=== PATIENT | female | born 1960 | race American Indian/Alaskan Native ===

== ENCOUNTER 2020-09-23 01:40 | Inpatient (IN) | payer MEDICARE ==
--- NOTE | 2020-09-23 03:13 | XRay Report ---
CHEST 1 VIEW 09/23/2020 2:48 AM INDICATION / CLINICAL INFORMATION: Chest Pain. COMPARISON: None available. FINDINGS: SUPPORT DEVICES: AICD is noted HEART / MEDIASTINUM: There is enlargement of the cardiac silhouette. LUNGS / PLEURA: There is mild increase in interstitial markings bilaterally characteristic of mild ed jessica. No pneumothorax. ADDITIONAL FINDINGS: No significant additional findings. IMPRESSION: 1. There is enlargement of the cardiac silhouette. There is mild edema. Signer Name: Niko Cruz MD Signed: 09/23/2020 3:08 AM Workstation Name: [id number]
--- NOTE | 2020-09-23 03:18 | Emergency Department Report ---
ED Chest Pain HPI - General Chief Complaint: Chest Pain Stated Complaint: CHEST PAIN Time Seen by Provider: 09/23/20 02:55 Source: patient, EMS Mode of arrival: Wheelchair Limitations: No Limitations - History of Present Illness Initial Comments: This is a 60-year-old -[place] female who presents to the emergency department with complaint of sharp midsternal to left-sided chest pain that has been going on since earlier today (Monday). The patient has been having a 2- week history of progressively worsening shortness of breath. She also admits to some swelling to the bilateral lower legs and feet. The patient lives in [place] and saw her truck body repairer yesterday prior to coming up to [place] for a visit. The patient has a past medical history of COPD on 2 L oxygen via nasal cannula, previous CVA with some mild residual right-sided weakness, coronary artery disease with cardiac stents, CHF and the patient has an AICD/pacemaker in place. Patient also says that she has an internal cardiac monitor technician. About 2 weeks ago the patient was told that she had some abnormal rate or rhythm from the internal monitor. This led to her having a stress test which appeared abnormal. 1 week ago the patient had a heart cath in which she was told that she needed a cardiac stent placed but says that she did not get a stent placed at that time. The patient also says that she has a leaky heart valve that needs to be replaced sometime in the near future. The patient has taken her home medications but otherwise did not take anything else in attempt to treat her symptoms. Symptoms worsen with exertion. No known alleviating factors. She denies any tobacco or illicit drug use. - Related Data Allergies Allergy/AdvReac Type Severity Reaction Status Date / Time heparin Allergy Unknown Verified 09/23/20 02:36 latex Allergy Unknown Verified 09/23/20 02:36 Penicillins Allergy Unknown Verified 09/23/20 02:36 Heart Score - HEART Score History: Moderately suspicious EKG: Non-specific Age: 45-65 Risk factors: > 3 risk factors or hx of atherosclerotic disease Troponin: < normal limit HEART Score: 5 - Critical Actions Critical Actions: 4-6 pts:12-16.6% risk of adverse cardiac event. Should be admitted ED Review of Systems ROS: Stated complaint: CHEST PAIN Other details as noted in HPI Comment: All other systems reviewed and negative Constitutional: denies: chills, fever Eyes: denies: eye pain, vision change ENT: denies: ear pain, throat pain Respiratory: shortness of breath, SOB with exertion. denies: cough Cardiovascular: chest pain, edema Gastrointestinal: denies: abdominal pain, vomiting Genitourinary: denies: dysuria, discharge Musculoskeletal: denies: back pain, arthralgia Skin: denies: rash, lesions Neurological: denies: headache, weakness ED Past Medical Hx - Past Medical History Previous Medical History?: Yes Hx CVA: Yes (right weaker) Hx Heart Attack/AMI: Yes Hx COPD: Yes Additional medical history: CHF - Surgical History Hx Coronary Stent: Yes Hx Pacemaker: Yes Hx Internal Defibrillator: Yes - Social History Smoking Status: Never Smoker Substance Use Type: None ED Physical Exam - General Limitations: No Limitations - Other Other exam information: GENERAL: The patient is well-developed well-nourished. HENT: Normocephalic. Atraumatic. Patient has moist mucous membranes. EYES: Extraocular motions are intact. NECK: Supple. Trachea is midline. CHEST/LUNGS: Coarse breath sounds. No tachypnea or accessory muscle use. There is no respiratory distress noted. Unable to reproduce chest pain to palpation of the chest wall. HEART/CARDIOVASCULAR: Regular. There is no tachycardia. There is no murmur. ABDOMEN: Abdomen is soft, nontender. Patient has normal bowel sounds. There is no abdominal distention. SKIN: Skin is warm and dry. 1+ pitting edema to the bilateral lower extrem ities. NEURO: The patient is awake, alert, and oriented. The patient is cooperative. The patient has no focal neurologic deficits. Normal speech. MUSCULOSKELETAL: There is no tenderness or deformity. There is no limitation range of motion. ED Course Vital Signs 09/23/20 09/23/20 09/23/20 02:26 02:29 03:21 Temperature 97.2 F L 97.2 F L Pulse Rate 78 77 Respiratory 18 22 Rate Blood Pressure 124/92 Blood Pressure [Right] O2 Sat by Pulse 100 100 Oximetry 09/23/20 09/23/20 09/23/20 04:29 04:30 04:31 Temperature Pulse Rate 75 76 76 Respiratory 20 20 19 Rate Blood Pressure 137/99 137/99 Blood Pressure 137/99 [Right] O2 Sat by Pulse 99 99 100 Oximetry 09/23/20 09/23/20 04:51 05:00 Temperature Pulse Rate 76 Respiratory 18 21 Rate Blood Pressure 126/96 Blood Pressure [Right] O2 Sat by Pulse 97 Oximetry GAVIN score - Gavin Score Age > 65: (0) No Aspirin use within the Past 7 Days: (1) Yes 3 or more CAD Risk Factors: (1) Yes 2 or more Angina events in past 24 hrs: (1) Yes Known CAD with more than 50% Stenosis: (1) Yes Elevated Cardiac Markers: (0) No ST Deviation Greater than 0.5mm: (0) No GAVIN Score: 4 ED Medical Decision Making - Lab Data Result diagrams: 09/23/20 03:09 09/23/20 03:09 Lab Results 09/23/20 09/23/20 09/23/20 Range/Units 03:09 03:09 03:12 WBC 4.4 L (4.5-11.0) K/mm3 RBC 2.93 L (3.65-5.03) M/mm3 Hgb 9.6 L (10.1-14.3) gm/dl Hct 29.8 L (30.3-42.9) % MCV 102 H (79-97) fl MCH 33 H (28-32) pg MCHC 32 (30-34) % RDW 16.7 H (13.2-15.2) % Plt Count 135 L (140-440) K/mm3 Lymph % (Auto) 24.5 (13.4-35.0) % [place] % (Auto) 10.2 H (0.0-7.3) % Eos % (Auto) 1.6 (0.0-4.3) % Baso % (Auto) 0.9 (0.0-1.8) % Lymph # (Auto) 1.1 L (1.2-5.4) K/mm3 [place] # (Auto) 0.4 (0.0-0.8) K/mm3 Eos # (Auto) 0.1 (0.0-0.4) K/mm3 Baso # (Auto) 0.0 (0.0-0.1) K/mm3 Seg Neutrophils % 62.8 (40.0-70.0) % Seg Neutrophils # 2.8 (1.8-7.7) K/mm3 D-Dimer 580.22 H (0-234) ng/mlDDU Sodium 147 H (137-145) mmol/L Potassium 3.7 (3.6-5.0) mmol/L Chloride 106.8 (98-107) mmol/L Carbon Dioxide 26 (22-30) mmol/L Anion Gap 18 mmol/L BUN 18 H (7-17) mg/dL Creatinine 1.3 H (0.6-1.2) mg/dL Estimated GFR 51 ml/min BUN/Creatinine Ratio 14 % Glucose 90 (65-100) mg/dL Calcium 9.1 (8.4-10.2) mg/dL Troponin T < 0.010 (0.00-0.029) ng/mL NT-Pro-B Natriuret Pep 7440 H (0-900) pg/mL - EKG Data -: EKG Interpreted by Me EKG shows normal: sinus rhythm, axis, intervals (Prolonged QTC), QRS complexes (Left bundle branch block), ST-T waves Rate: normal - EKG Data When compared to previous EKG there are: previous EKG unavailable Interpretation: other (Sinus rhythm, rate of 79 bpm, prolonged QTC, left axis deviation, left bundle branch block.) - Radiology Data Radiology results: image reviewed interpreted by me: Chest x-ray shows cardiomegaly and some pulmonary vascular congestion with some mild interstitial edema. No obvious pneumonia. No pneumothorax. - Medical Decision Making This patient presents to the emergency department with complaint of some midsternal to left-sided chest pain that started earlier in the afternoon, as well as some worsening of her shortness of breath. EKG shows a left bundle branch block but there is no morphology consistent with ST elevation myocardial infarction. Chest x-ray shows some interstitial edema and pulmonary vascular congestion consistent with CHF. Patient's labs shows an elevated proBNP of about 7500, and elevated and equivocal D-dimer level, and some anemia that does not require a transfusion. She was given some IV analgesia and an extra dose of Lasix to help with diuresis. First troponin negative. Patient will be admitted to the hospital for further evaluation and treatment and was accepted for admission by the hospitalist, Dr. Mejia. Critical Care Time: No Critical care attestation.: If time is entered above; I have spent that time in minutes in the direct care of this critically ill patient, excluding procedure time. ED Disposition Clinical Impression: Angina at rest, Acute chest pain, History of coronary artery disease CHF exacerbation Qualifiers: Heart failure type: unspecified Qualified Code(s): I50.9 - Heart failure, unspecified Disposition: DC-09 OP ADMIT IP TO THIS HOSP Is pt being admited?: Yes Condition: Serious Time of Disposition: 04:46
[2020-09-23 04:17] LABS: Basophils % (Auto) 0.9 % (0.0-1.8); Eosinophils # (Auto) 0.1 K/mm3 (0.0-0.4); Eosinophils % (Auto) 1.6 % (0.0-4.3); Hematocrit 29.8 % (30.3-42.9); Hemoglobin 9.6 gm/dl (10.1-14.3); Lymphocytes # (Auto) 1.1 K/mm3 (1.2-5.4); Lymphocytes % (Auto) 24.5 % (13.4-35.0); Mean Corpuscular HGB Conc 32 % (30-34); Mean Corpuscular Volume 102 fl (79-97); Monocytes # (Auto) 0.4 K/mm3 (0.0-0.8); Monocytes % (Auto) 10.2 % (0.0-7.3); Platelet Count 135 K/mm3 (140-440); Red Blood Count 2.93 M/mm3 (3.65-5.03); Red Cell Distribution Width 16.7 % (13.2-15.2)
[2020-09-23 04:31] LABS: BUN/Creatinine Ratio 14; Blood Urea Nitrogen 18 mg/dL (7-17); Calcium 9.1 mg/dL (8.4-10.2); Hemolysis Index 3
[2020-09-23] MEDS ORDERED: FUROSEMIDE 20 MG/2 ML INJ IV ONE (04:37)
[2020-09-23] MEDS ORDERED: MORPHINE 4 MG/1 ML INJ IV ONE (04:38)
[2020-09-23] MEDS ORDERED: NITROGLYCERIN 0.4 MG TAB SUBL SL PRN (05:00)
[2020-09-23] MEDS ORDERED: ACETAMINOPHEN 325 MG TAB PO PRN (05:00)
[2020-09-23] MEDS ORDERED: MORPHINE 2 MG/1 ML INJ IV PRN (05:00)
--- NOTE | 2020-09-23 05:11 | History and Physical Report ---
History of Present Illness Date of examination: 09/23/20 Chief complaint: Chest pain Shortness of breath History of present illness: 60-year-old -[place] female with history of COPD on 2 L of oxygen and history of CVA, coronary artery disease CHF cardiac a stent who presents to the emergency department with complaint of sharp mid sternal to left-sided chest pain that has been going on since Monday. The patient has been having a 2-week history of progressively worsening shortness of breath and some swelling to the bilateral lower legs and feet. The patient lives in [place] and saw her licensed appraiser yesterday prior to coming up to [place] for a visit. the patient has an AICD/pacemaker in place. Patient also says that she has an internal property assessment monitor. About 2 weeks ago the patient was told that she had some abnormal rate or rhythm from the internal monitor. This led to her having a stress test which appeared abnormal. 1 week ago the patient had a heart cath in which she was told that she needed a cardiac stent placed but says that she did not get a stent placed at that time. The patient also says that she has a leaky heart valve that needs to be replaced sometime in the near future. The patient has taken her home medications but otherwise did not take anything else in attempt to treat her symptoms. Symptoms worsen with exertion. Past History Past Medical History: CAD, COPD, heart failure, stroke Medications and Allergies Allergies Allergy/AdvReac Type Severity Reaction Status Date / Time heparin Allergy Unknown Verified 09/23/20 02:36 latex Allergy Unknown Verified 09/23/20 02:36 Penicillins Allergy Unknown Verified 09/23/20 02:36 Active Meds: Active Medications Acetaminophen (Acetaminophen 325 Mg Tab) 650 mg PO Q6H PRN PRN Reason: Pain, Mild (1-3) Aspirin (Aspirin 81 Mg Tab Chew) 324 mg PO ONCE STA Stop: 09/23/20 05:01 Atorvastatin Calcium (Atorvastatin 40 Mg Tab) 40 mg PO QHS [facility] Furosemide (Furosemide 40 Mg/4 Ml Inj) 40 mg IV BID@0600,1800 [facility] Heparin Sodium (Porcine) (Heparin 5,000 Unit/1 Ml Vial) 5,000 unit SUB-Q Q8HR [facility] Lisinopril (Lisinopril 5 Mg Tab) 5 mg PO QDAY [facility] Morphine Sulfate (Morphine 4 Mg/1 Ml Inj) 2 mg IV Q5MIN PRN PRN Reason: Chest Pain Nitroglycerin (Nitroglycerin 0.4 Mg Tab Subl) 0.4 mg SL Q5M PRN PRN Reason: Chest Pain Pantoprazole Sodium (Pantoprazole 40 Mg Tab) 40 mg PO QDAY [facility] Sodium Chloride (Sodium Chloride 0.9% 10 Ml Flush Syringe) 10 ml IV PRN PRN PRN Reason: LINE FLUSH Review of Systems Cardiovascular: chest pain, orthopnea, shortness of breath, dyspnea on exertion Respiratory: shortness of breath, dyspnea on exertion Exam - Constitutional Vitals: Temp Pulse Resp BP Pulse Ox 97.2 F L 76 18 137/99 99 09/23/20 02:29 09/23/20 04:30 09/23/20 04:51 09/23/20 04:30 09/23/20 04:30 General appearance: Present: mild distress - EENT Eyes: Present: PERRL ENT: hearing intact, clear oral mucosa - Neck Neck: Present: supple, normal ROM - Respiratory Respiratory effort: normal Respiratory: bilateral: rales - Cardiovascular Heart Sounds: Present: S1 & S2. Absent: rub, click - Extremities Extremities: pulses symmetrical, No edema Peripheral Pulses: within normal limits - Abdominal General gastrointestinal: Present: soft, non-tender, non-distended, normal bowel sounds Female genitourinary: Present: normal - Integumentary Integumentary: Present: clear, warm, dry - Musculoskeletal Musculoskeletal: gait normal, strength equal bilaterally - Psychiatric Psychiatric: appropriate mood/affect, intact judgment & insight - Neurologic Neurologic: CNII-XII intact, moves all extremities HEART Score - HEART Score EKG: Non-specific Age: 45-65 Risk factors: > 3 risk factors or hx of atherosclerotic disease Troponin: Troponin T < 0.010 ng/mL (0.00-0.029) 09/23/20 03:09 Troponin: < normal limit - Critical Actions Critical Actions: 4-6 pts:12-16.6% risk of adverse cardiac event. Should be admitted Results - Labs CBC & Chem 7: 09/23/20 03:09 09/23/20 03:09 Labs: Laboratory Last Values WBC 4.4 K/mm3 (4.5-11.0) L 09/23/20 03:09 RBC 2.93 M/mm3 (3.65-5.03) L 09/23/20 03:09 Hgb 9.6 gm/dl (10.1-14.3) L 09/23/20 03:09 Hct 29.8 % (30.3-42.9) L 09/23/20 03:09 MCV 102 fl (79-97) H 09/23/20 03:09 MCH 33 pg (28-32) H 09/23/20 03:09 MCHC 32 % (30-34) 09/23/20 03:09 RDW 16.7 % (13.2-15.2) H 09/23/20 03:09 Plt Count 135 K/mm3 (140-440) L 09/23/20 03:09 Lymph % (Auto) 24.5 % (13.4-35.0) 09/23/20 03:09 [place] % (Auto) 10.2 % (0.0-7.3) H 09/23/20 03:09 Eos % (Auto) 1.6 % (0.0-4.3) 09/23/20 03:09 Baso % (Auto) 0.9 % (0.0-1.8) 09/23/20 03:09 Lymph # (Auto) 1.1 K/mm3 (1.2-5.4) L 09/23/20 03:09 [place] # (Auto) 0.4 K/mm3 (0.0-0.8) 09/23/20 03:09 Eos # (Auto) 0.1 K/mm3 (0.0-0.4) 09/23/20 03:09 Baso # (Auto) 0.0 K/mm3 (0.0-0.1) 09/23/20 03:09 Seg Neutrophils % 62.8 % (40.0-70.0) 09/23/20 03:09 Seg Neutrophils # 2.8 K/mm3 (1.8-7.7) 09/23/20 03:09 D-Dimer 580.22 ng/mlDDU (0-234) H 09/23/20 03:12 Sodium 147 mmol/L (137-145) H 09/23/20 03:09 Potassium 3.7 mmol/L (3.6-5.0) 09/23/20 03:09 Chloride 106.8 mmol/L (98-107) 09/23/20 03:09 Carbon Dioxide 26 mmol/L (22-30) 09/23/20 03:09 Anion Gap 18 mmol/L 09/23/20 03:09 BUN 18 mg/dL (7-17) H 09/23/20 03:09 Creatinine 1.3 mg/dL (0.6-1.2) H 09/23/20 03:09 Estimated GFR 51 ml/min 09/23/20 03:09 BUN/Creatinine Ratio 14 % 09/23/20 03:09 Glucose 90 mg/dL (65-100) 09/23/20 03:09 Calcium 9.1 mg/dL (8.4-10.2) 09/23/20 03:09 Troponin T < 0.010 ng/mL (0.00-0.029) 09/23/20 03:09 NT-Pro-B Natriuret Pep 7440 pg/mL (0-900) H 09/23/20 03:09 - Imaging and Cardiology Chest x-ray: image reviewed Assessment and Plan - Patient Problems (1) Acute chest pain Current Visit: Yes Status: Acute Plan to address problem: Admit the patient to the cardiac telemetry. Aspirin 325 mg p.o. daily. Lipitor 40 mg p.o. daily. Due to the serial cardiac enzyme. We also do echocardiogram. Will consult cardiology to see the patient. We'll check CBC BMP and lipid panel. Heparin 5000 units subcu every 8 hours for DVT prophylaxis and Protonix 40 mg daily for GI prophylaxis (2) CHF exacerbation Current Visit: Yes Status: Acute Plan to address problem: Put the patient on CHF pathway. Oxygen via nasal cannula 3 L/min. Fluid restriction. Lasix 40 mg IV every 12 hours. Echocardiogram. Will consult cardiology to see the patient. We also monitor intake and output . Recheck CBC BMP in the morning. (3) History of coronary artery disease Current Visit: Yes Status: Acute Plan to address problem: Admit the patient to the cardiac telemetry. Aspirin 325 mg p.o. daily. Lipitor 40 mg p.o. daily. Due to the serial cardiac enzyme. We also do echocardiogram. Will consult cardiology to see the patient. We'll check CBC BMP and lipid panel. Heparin 5000 units subcu every 8 hours for DVT prophylaxis and Protonix 40 mg daily for GI prophylaxis
[2020-09-23] MEDS ORDERED: ASPIRIN 81 MG TAB CHEW PO ONE (05:30)
[2020-09-23] MEDS ORDERED: HEPARIN 5,000 UNIT/1 ML VIAL SUB-Q SCH (06:00)
[2020-09-23] MEDS: FUROSEMIDE 40 MG/4 ML INJ IV SCH ×2 (06:46→18:09)
[2020-09-23 09:15] LABS: Eosinophils # (Auto) 0.1 K/mm3 (0.0-0.4); Eosinophils % (Auto) 3.1 % (0.0-4.3); Hematocrit 29.9 % (30.3-42.9); Hemoglobin 9.6 gm/dl (10.1-14.3); Lymphocytes # (Auto) 1.1 K/mm3 (1.2-5.4); Lymphocytes % (Auto) 27.2 % (13.4-35.0); Mean Corpuscular HGB Conc 32 % (30-34); Mean Corpuscular Volume 101 fl (79-97); Monocytes # (Auto) 0.4 K/mm3 (0.0-0.8); Monocytes % (Auto) 9.7 % (0.0-7.3); Platelet Count 127 K/mm3 (140-440); Red Blood Count 2.95 M/mm3 (3.65-5.03); Red Cell Distribution Width 17.1 % (13.2-15.2)
[2020-09-23 09:34] LABS: Calcium 9.1 mg/dL (8.4-10.2); Chol/HDL Ratio 2.33 %
--- NOTE | 2020-09-23 11:02 | Consultation ---
History of Present Illness Consult date: 09/23/20 Requesting physician: DAVID CHAPA Consult reason: chest pain, congestive heart failure History of present illness: The pt is a 60-year-old female who is visiting from [place], [place], with a past medical history of reported CAD s/p AMI with PCI in 2008, HFrEF, CMP (EF ~15%), AICD in situ, CVA with some mild residual right-sided weakness, COPD, chronic respiratory failure requiring home O2, gastric bypass. She presented with c/o progressively worsening SOB and BLE swelling for 2 weeks prior to arrival. The patient lives in [place] and reportedly saw her oil transport driver yesterday prior to coming to [place] for a visit. Pt reports that she underwent stress testing one week ago in [place] which was abnormal. She reportedly subsequently underwent LHC and was told that she needs "open heart surgery" and an external "pump" (? LVAD). She reports that she declined aggressive management. LHC done at [facility] in 2007 showed normal coronaries. tte done at [facility] in 2007 showed EF 45%, mild LVH, LA mildly dilated, mild to mo d TR. Past History Past Medical History: CAD, COPD, heart failure, stroke, other (as per HPI) Medications and Allergies Allergies Allergy/AdvReac Type Severity Reaction Status Date / Time heparin Allergy Unknown Verified 09/23/20 02:36 latex Allergy Unknown Verified 09/23/20 02:36 Penicillins Allergy Unknown Verified 09/23/20 02:36 Active Meds: Active Medications Acetaminophen (Acetaminophen 325 Mg Tab) 650 mg PO Q6H PRN PRN Reason: Pain, Mild (1-3) Atorvastatin Calcium (Atorvastatin 40 Mg Tab) 40 mg PO QHS [facility] Furosemide (Furosemide 40 Mg/4 Ml Inj) 40 mg IV BID@0600,1800 [facility] Last Admin: 09/23/20 06:46 Dose: Not Given Documented by: Lisinopril (Lisinopril 5 Mg Tab) 5 mg PO QDAY [facility] Morphine Sulfate (Morphine 2 Mg/1 Ml Inj) 2 mg IV Q5MIN PRN PRN Reason: Chest Pain Nitroglycerin (Nitroglycerin 0.4 Mg Tab Subl) 0.4 mg SL Q5M PRN PRN Reason: Chest Pain Pantoprazole Sodium (Pantoprazole 40 Mg Tab) 40 mg PO QDAY [facility] Sodium Chloride (Sodium Chloride 0.9% 10 Ml Flush Syringe) 10 ml IV PRN PRN PRN Reason: LINE FLUSH Review of Systems Constitutional: no fever, no chills, no sweats Ears, nose, mouth and throat: no ear pain, no nose pain, no sinus pressure, no sinus pain Cardiovascular: orthopnea, edema, shortness of breath, dyspnea on exertion, paroxysmal nocturnal dyspnea, no chest pain, no palpitations, no rapid/irregular heart beat, no syncope, no lightheadedness Respiratory: shortness of breath, dyspnea on exertion, no cough, no congestion, no wheezing, no pain on inspiration Gastrointestinal: no abdominal pain, no nausea, no vomiting, no diarrhea, no constipation, no change in bowel habits Genitourinary Female: no pelvic pain, no flank pain, no dysuria, no urinary frequency, no urgency Musculoskeletal: no neck stiffness, no neck pain, no shooting arm pain, no arm numbness/tingling, no low back pain, no shooting leg pain Integumentary: no rash, no pruritis, no redness, no sores, no wounds Neurological: no head injury, no paralysis, no weakness, no parathesias, no numbness, no tingling, no seizures, no syncope Psychiatric: no anxiety Endocrine: no cold intolerance, no heat intolerance Hematologic/Lymphatic: no easy bruising Allergic/Immunologic: no urticaria Physical Examination Vital Signs Temp 97.2 F L 09/23/20 02:26 General appearance: no acute distress HEENT: Positive: PERRL, Normocephaly, Mucus Membranes Moist Neck: Positive: neck supple, trachea midline Cardiac: Positive: Reg Rate and Rhythm, S1/S2 Lungs: Positive: Decreased Breath Sounds Neuro: Positive: Grossly Intact Abdomen: Negative: Tender Skin: Negative: Rash Musculoskeletal: No Pain Extremities: Present: edema (trace BLE) Results 09/23/20 08:52 09/23/20 08:52 Lipids 09/23/20 Range/Units 08:52 Triglycerides 76 (2-149) mg/dL Cholesterol 133 (50-199) mg/dL HDL Cholesterol 57 (40-59) mg/dL Cholesterol/HDL Ratio 2.33 % CBC 09/23/20 09/23/20 Range/Units 03:09 08:52 WBC 4.4 L 4.0 L (4.5-11.0) K/mm3 RBC 2.93 L 2.95 L (3.65-5.03) M/mm3 Hgb 9.6 L 9.6 L (10.1-14.3) gm/dl Hct 29.8 L 29.9 L (30.3-42.9) % Plt Count 135 L 127 L (140-440) K/mm3 Lymph # (Auto) 1.1 L 1.1 L (1.2-5.4) K/mm3 [place] # (Auto) 0.4 0.4 (0.0-0.8) K/mm3 Eos # (Auto) 0.1 0.1 (0.0-0.4) K/mm3 Baso # (Auto) 0.0 0.0 (0.0-0.1) K/mm3 Comprehensive Metabolic Panel 09/23/20 09/23/20 Range/Units 03:09 08:52 Sodium 147 H 144 (137-145) mmol/L Potassium 3.7 3.6 (3.6-5.0) mmol/L Chloride 106.8 104.8 (98-107) mmol/L Carbon Dioxide 26 30 (22-30) mmol/L BUN 18 H 16 (7-17) mg/dL Creatinine 1.3 H 1.2 (0.6-1.2) mg/dL Glucose 90 166 H (65-100) mg/dL Calcium 9.1 9.1 (8.4-10.2) mg/dL - Imaging and Cardiology EKG: report reviewed, image reviewed EKG interpretations - Telemetry EKG Rhythm: Sinus Rhythm - EKG Sinus rhythms and dysrhythmias: sinus rhythm AV and intraventricular conduction: left bundle branch block Assessment and Plan Pt has reported h/o CAD s/p AMI with PCI in 2008, HFrEF, CMP (EF ~15%), AICD in situ, CVA with some mild residual right-sided weakness, COPD, chronic respiratory failure requiring home O2, gastric bypass. Pt reports that she underwent stress testing one week ago in which was abnormal. She reportedly subsequently underwent LHC and was told that she needs "open heart surgery" and an external "pump" (? LVAD). She reports that she declined aggressive management. We will attempt to obtain these medical records from [place]. Cont IV lasix BID, toprol XL, lisinopril. F/u tte. Will follow. The patient has been seen in conjunction with Dr. Lela Pace who agrees with the assessment and plan of care. - Patient Problems (1) Acute HFrEF (heart failure with reduced ejection fraction) Current Visit: Yes Status: Acute (2) Cardiomyopathy Current Visit: Yes Status: Chronic (3) CAD (coronary artery disease) Current Visit: Yes Status: Chronic (4) Stented coronary artery Current Visit: Yes Status: Chronic (5) Automatic implantable cardioverter-defibrillator in situ Current Visit: Yes Status: Chronic (6) Anemia Current Visit: Yes Status: Acute (7) Thrombocytopenia Current Visit: Yes Status: Acute (8) History of CVA (cerebrovascular accident) Current Visit: Yes Status: Chronic (9) COPD (chronic obstructive pulmonary disease) Current Visit: Yes Status: Chronic (10) Chronic respiratory failure Current Visit: Yes Status: Chronic (11) History of gastric bypass Current Visit: Yes Status: Chronic
[2020-09-23] MEDS: PANTOPRAZOLE 40 MG TAB PO SCH (11:03)
[2020-09-23] MEDS: LISINOPRIL 5 MG TAB PO SCH (11:03)
--- NOTE | 2020-09-23 19:26 | Event Note ---
Date: 09/23/20 Patient with extensive cardiac history was admitted this morning with worsening shortness of breath and chest pain Cardiology evaluated the patient, work-up is in progress, medical records reviewed Agree with the current management, will closely monitor the patient and adjust management as needed We will request medical records from March where patient was recently admitted and was evaluated Plan of care reviewed with the patient and her nurse
[2020-09-24] MEDS: FUROSEMIDE 40 MG/4 ML INJ IV SCH ×2 (05:05→17:09)
[2020-09-24 06:44] LABS: BUN/Creatinine Ratio 17; Blood Urea Nitrogen 15 mg/dL (7-17); Calcium 8.7 mg/dL (8.4-10.2); Hemolysis Index 4
[2020-09-24] MEDS: ASPIRIN 81 MG TAB CHEW PO SCH (09:25)
[2020-09-24] MEDS: METOPROLOL SUCCINATE XL 25 MG TAB PO SCH (09:26)
[2020-09-24] MEDS: LISINOPRIL 5 MG TAB PO SCH (09:26)
[2020-09-24] MEDS: PANTOPRAZOLE 40 MG TAB PO SCH (09:29)
--- NOTE | 2020-09-24 10:01 | Progress Note ---
Assessment and Plan Pt appears to be clinically improving. tte reviewed - EF 30-35%, impaired relaxation, LA severely dilated, pacemaker wire in RV, mild AR, mod MR, severe pulm HTN with RVSP 74mmHg. Cont IV lasix BID, toprol XL, lisinopril. Await medical records from [place]. The patient has been seen in conjunction with Dr. Lela Pace who agrees with the assessment and plan of care. - Patient Problems (1) Acute HFrEF (heart failure with reduced ejection fraction) Current Visit: Yes Status: Acute (2) Cardiomyopathy Current Visit: Yes Status: Chronic (3) CAD (coronary artery disease) Current Visit: Yes Status: Chronic (4) Stented coronary artery Current Visit: Yes Status: Chronic (5) Automatic implantable cardioverter-defibrillator in situ Current Visit: Yes Status: Chronic (6) Anemia Current Visit: Yes Status: Acute (7) Thrombocytopenia Current Visit: Yes Status: Acute (8) History of CVA (cerebrovascular accident) Current Visit: Yes Status: Chronic (9) COPD (chronic obstructive pulmonary disease) Current Visit: Yes Status: Chronic (10) Chronic respiratory failure Current Visit: Yes Status: Chronic (11) History of gastric bypass Current Visit: Yes Status: Chronic (12) Severe pulmonary hypertension Current Visit: Yes Status: Chronic Subjective Date of service: 09/24/20 Principal diagnosis: HF Interval history: pt resting in bed, states she is feeing better - reports significant increase in UOP overnight. tele reviewed - in SR HR 70s. Objective Last Vital Signs Temp 96.4 F L 09/24/20 08:06 Pulse 69 09/24/20 09:26 Resp 18 09/24/20 08:06 BP 112/74 09/24/20 09:26 Pulse Ox 100 09/24/20 08:20 - Physical Examination General: No Apparent Distress HEENT: Positive: PERRL, Normocephaly, Mucus Membranes Moist Neck: Positive: neck supple, trachea midline Cardiac: Positive: Reg Rate and Rhythm, S1/S2 Lungs: Positive: Decreased Breath Sounds Neuro: Positive: Grossly Intact Abdomen: Negative: Tender Skin: Negative: Rash Musculoskeletal: No Pain Extremities: Present: edema (trace BLE) - Labs and Meds Comprehensive Metabolic Panel 09/24/20 Range/Units 04:49 Sodium 144 (137-145) mmol/L Potassium 3.4 L (3.6-5.0) mmol/L Chloride 105.4 (98-107) mmol/L Carbon Dioxide 27 (22-30) mmol/L BUN 15 (7-17) mg/dL Creatinine 0.9 (0.6-1.2) mg/dL Glucose 91 (65-100) mg/dL Calcium 8.7 (8.4-10.2) mg/dL - Imaging and Cardiology EKG: report reviewed, image reviewed - EKG Sinus rhythms and dysrhythmias: sinus rhythm AV and intraventricular conduction: left bundle branch block
[2020-09-24] MEDS ORDERED: POTASSIUM CHLORIDE ER 20 MEQ TAB PO NR (10:05)
--- NOTE | 2020-09-24 15:25 | Progress Note ---
Assessment and Plan Assessment and plan: --Hypokalemia; Current Visit: Yes Status: Acute. Plan to address problem: 40 mEq KCl by mouth monitor levels Closely monitor electrolytes and adjust as needed --Acute on chronic respiratory failure; Current Visit: Yes Status: Acute. Plan to address problem: Patient home oxygen dependent at 3 L Continue oxygen titrate O2 sats to more than 90% Supportive care -- Acute chest pain Current Visit: Yes Status: Acute. Plan to address problem: Atypical chest pain, symptoms resolved Conservative management Troponin x3 negative, follow echo report `and cardiology recommendation --Acute on chronic systolic CHF exacerbation Current Visit: Yes Status: Acute Plan to address problem: IV diuretics, beta-blockers, input output monitoring, low-sodium diet Fluid restriction, HELEN inhibitors, follow echocardiogram Cardiology following -- History of coronary artery disease status post PCI Current Visit: Yes Status: Acute Plan to address problem: Continue current cardiac medications, cardiac diet. Supportive care --Severe ischemic cardiomyopathy: Current Visit: Yes Status: Acute. Plan to address problem: Continue current antifailure medications Check records from March. --AICD in place Current Visit: Yes Status: Acute. Plan to address problem: Interrogation if needed. --history of COPD Current Visit: Yes Status: Acute. Plan to address problem: Well compensated Oxygen titrate O2 sats to more than 90% Pulmonary evaluation if needed --History of gastric bypass surgery ; Current Visit: Yes Status: Acute patient has no new complaints -- Anemia; Probably chronic anemia closely monitor H&H and transfuse as needed Follow cardiology recommendations Closely monitor patient and adjust management as needed Plan of care reviewed with the patient and her nurse 09/24/2020; patient is evaluated by the cardiology, awaiting records from [facility] History Interval history: I have seen and examined the patient this morning at the bedside Patient's chart and medications reviewed Patient was admitted with chest pain and shortness of breath Cardiology evaluation and recommendations noted and appreciated Waiting for patient's medical records from [facility] Patient feels slightly better no new complaints Vital signs reviewed Hospitalist Physical - Constitutional Vitals: Temp Pulse Resp BP Pulse Ox 96.4 F L 69 18 112/74 100 09/24/20 08:06 09/24/20 09:26 09/24/20 08:06 09/24/20 09:26 09/24/20 08:20 General appearance: Present: no acute distress, well-nourished, obese - EENT Eyes: Present: PERRL, EOM intact - Neck Neck: Present: supple, normal ROM - Respiratory Respiratory effort: normal Respiratory: bilateral: diminished, rhonchi, negative: rales, wheezing - Cardiovascular Rhythm: regular Heart Sounds: Present: S1 & S2 - Extremities Extremities: no ischemia, No edema - Abdominal General gastrointestinal: soft, non-tender, non-distended, normal bowel sounds - Integumentary Integumentary: Present: clear, warm - Psychiatric Psychiatric: appropriate mood/affect, cooperative - Neurologic Neurologic: CNII-XII intact, moves all extremities HEART Score - HEART Score EKG: Non-specific Age: 45-65 Risk factors: > 3 risk factors or hx of atherosclerotic disease Troponin: Troponin T < 0.010 ng/mL (0.00-0.029) 09/23/20 08:52 Troponin: < normal limit - Critical Actions Critical Actions: 4-6 pts:12-16.6% risk of adverse cardiac event. Should be admitted Results - Labs CBC & Chem 7: 09/23/20 08:52 09/24/20 04:49 Labs: Laboratory Last Values WBC 4.0 K/mm3 (4.5-11.0) L 09/23/20 08:52 RBC 2.95 M/mm3 (3.65-5.03) L 09/23/20 08:52 Hgb 9.6 gm/dl (10.1-14.3) L 09/23/20 08:52 Hct 29.9 % (30.3-42.9) L 09/23/20 08:52 MCV 101 fl (79-97) H 09/23/20 08:52 MCH 33 pg (28-32) H 09/23/20 08:52 MCHC 32 % (30-34) 09/23/20 08:52 RDW 17.1 % (13.2-15.2) H 09/23/20 08:52 Plt Count 127 K/mm3 (140-440) L 09/23/20 08:52 Lymph % (Auto) 27.2 % (13.4-35.0) 09/23/20 08:52 [place] % (Auto) 9.7 % (0.0-7.3) H 09/23/20 08:52 Eos % (Auto) 3.1 % (0.0-4.3) 09/23/20 08:52 Baso % (Auto) 1.0 % (0.0-1.8) 09/23/20 08:52 Lymph # (Auto) 1.1 K/mm3 (1.2-5.4) L 09/23/20 08:52 [place] # (Auto) 0.4 K/mm3 (0.0-0.8) 09/23/20 08:52 Eos # (Auto) 0.1 K/mm3 (0.0-0.4) 09/23/20 08:52 Baso # (Auto) 0.0 K/mm3 (0.0-0.1) 09/23/20 08:52 Seg Neutrophils % 59.0 % (40.0-70.0) 09/23/20 08:52 Seg Neutrophils # 2.3 K/mm3 (1.8-7.7) 09/23/20 08:52 D-Dimer 580.22 ng/mlDDU (0-234) H 09/23/20 03:12 Sodium 144 mmol/L (137-145) 09/24/20 04:49 Potassium 3.4 mmol/L (3.6-5.0) L 09/24/20 04:49 Chloride 105.4 mmol/L (98-107) 09/24/20 04:49 Carbon Dioxide 27 mmol/L (22-30) 09/24/20 04:49 Anion Gap 15 mmol/L 09/24/20 04:49 BUN 15 mg/dL (7-17) 09/24/20 04:49 Creatinine 0.9 mg/dL (0.6-1.2) 09/24/20 04:49 Estimated GFR > 60 ml/min 09/24/20 04:49 BUN/Creatinine Ratio 17 % 09/24/20 04:49 Glucose 91 mg/dL (65-100) 09/24/20 04:49 Calcium 8.7 mg/dL (8.4-10.2) 09/24/20 04:49 Troponin T < 0.010 ng/mL (0.00-0.029) 09/23/20 08:52 NT-Pro-B Natriuret Pep 7440 pg/mL (0-900) H 09/23/20 03:09 Triglycerides 76 mg/dL (2-149) 09/23/20 08:52 Cholesterol 133 mg/dL (50-199) 09/23/20 08:52 LDL Cholesterol Direct 76 mg/dL (50-130) 09/23/20 08:52 HDL Cholesterol 57 mg/dL (40-59) 09/23/20 08:52 Cholesterol/HDL Ratio 2.33 % 09/23/20 08:52 Nasal Screen MRSA (PCR) Negative (Negative) 09/23/20 22:50 - Diagnostic Impressions Diagnostic Impressions: Echocardiogram 09/23/20 05:15 Transthoracic Echocardiogram Indication: CHF BP: 126/92 HR: 79 Conclusions *The left ventricular chamber size is severely dilated. *Global left ventricular systolic function is severely decreased. *The estimated ejection fraction is 30-35%. *Abnormal left ventricular diastolic filling is observed, consistent with impaired relaxation. *The left atrium is severely dilated. *A pacemaker wire is visualized in the right ventricle. *There is mild aortic regurgitation. *There is moderate mitral regurgitation. *There is evidence of severe pulmonary hypertension. Findings Left Ventricle: The left ventricular chamber size is severely dilated. There is no left ventricular hypertrophy. There are multiple regional wall motion abnormalities. Global left ventricular systolic function is severely decreased. The estimated ejection fraction is 30-35%. Abnormal left ventricular diastolic filling is observed, consistent with impaired relaxation. Left Atrium: The left atrium is severely dilated. Right Ventricle: The right ventricle is mild to moderately dilated. The right ventricular global systolic function is normal. A pacemaker wire is visualized in the right ventricle. Right Atrium: The right atrium is mild to moderately dilated. Aortic Valve: Mild aortic leaflet calcification is visualized. Moderate aortic cusp sclerosis is present. There is mild aortic regurgitation. There is no evidence of aortic stenosis. Mitral Valve: Mild mitral leaflet calcification is visualized. There is moderate mitral regurgitation. Tricuspid Valve: The tricuspid valve leaflets are normal. There is moderate tricuspid regurgitation. The right ventricular systolic pressure is calculated at 74 mmHg. There is evidence of severe pulmonary hypertension. Pulmonic Valve: There is no evidence of pulmonic valve thickening. There is mild pulmonic regurgitation. Pericardium: A pericardial effusion is visualized. A trivial pericardial effusion is visualized. Aorta: The aorta appears normal. Venous: The inferior vena cava is dilated. Measurements Chambers 2D Name Value Normal Range IVSd (2D) 0.87 cm (0.6 - 1.1) LVPWd (2D) 0.88 cm (0.6 - 1.1) LVIDd (2D) 7.05 cm (3.7 - 5.6) LVIDs (2D) 6.48 cm (2 - 3.8) LV FS (2D) 8.1 % - EF Teichholz (2D) 17.4 % - Ao root diameter (2D) 3.15 cm (2 - 3.7) Volumes/Mass Name Value Normal Range LA ESV SP 4CH (A/L) 137.61 ml - LA ESV SP 2CH (A/L) 142.65 ml - LA ESV BP (A/L) 149.81 ml - LA ESV BP (A/L) index 72.72 ml/m2 - LA ESV SP 4CH (MOD) 128.1 ml - LA ESV SP 2CH (MOD) 137.5 ml - LA ESV BP (MOD) 141.82 ml - LA ESV BP (MOD) index 68.85 ml/m2 - Diastolic/Systolic Function Name Value Normal Range MV E-wave Vmax 1.29 m/sec - MV deceleration time 163.86 msec - MV A-wave Vmax 0.84 m/sec - MV E:A ratio 1.53 ratio - Aortic Valve Name Value Normal Range AV Vmax 1.43 m/sec - AV VTI 23.38 cm - AV peak gradient 8.15 mmHg - AV mean gradient 4.54 mmHg - LVOT diameter 2.07 cm - LVOT Vmax 1 m/sec - LVOT VTI 15.04 cm - LVOT peak gradient 3.99 mmHg - LVOT mean gradient 2.09 mmHg - SV LVOT 50.37 ml - DENIZ (continuity Vmax) 2.34 cm2 - DENIZ (continuity VTI) 2.15 cm2 - AR PHT 2361.45 msec - AR peak gradient 56.82 mmHg - Ascending Ao 3.92 cm - Mitral Valve Name Value Normal Range MR volume (PISA) 36.74 ml - MR flow (PISA) 108.33 ml/sec - MR ERO 0.2 cm2 - MR PISA radius 0.89 cm - MR alias Vmax 21.94 cm/sec - Tricuspid Valve Name Value Normal Range TR Vmax 4.07 m/sec - TR peak gradient 66 mmHg - RAP 8 mmHg - RVSP 74 mmHg - IVC diameter 2.6 cm (1.2 - 2.3) Pulmonic Valve/Qp:Qs Name Value Normal Range PV Vmax 1.12 m/sec - PV peak gradient 5.03 mmHg - [place] end-diastolic Vmax 2.22 m/sec - PV acceleration time 72.31 msec - Corley/IV: Voiding Method Toilet IV Catheter Type [Left Hand] INT / Saline Lock Active Medications - Current Medications Current Medications: Generic Name Dose Route Start Last Admin Trade Name Freq PRN Reason Stop Dose Admin Acetaminophen 650 mg 09/23/20 05:00 Acetaminophen 325 Mg Tab PO Q6H PRN Pain, Mild (1-3) Aspirin 81 mg 09/24/20 10:00 09/24/20 09:25 Aspirin 81 Mg Tab Chew PO 81 mg QDAY ZAYDA Administration Atorvastatin Calcium 40 mg 09/23/20 22:00 09/23/20 22:45 Atorvastatin 40 Mg Tab PO 40 mg QHS ZAYDA Administration Furosemide 40 mg 09/23/20 06:00 09/24/20 05:05 Furosemide 40 Mg/4 Ml Inj IV 40 mg BID@0600,1800 ZAYDA Administration Lisinopril 5 mg 09/23/20 10:00 09/24/20 09:26 Lisinopril 5 Mg Tab PO 5 mg QDAY ZAYDA Administration Metoprolol Succinate 25 mg 09/24/20 10:00 09/24/20 09:26 Metoprolol Succinate Xl 25 Mg Tab PO 25 mg QDAY ZAYDA Administration Morphine Sulfate 2 mg 09/23/20 05:00 Morphine 2 Mg/1 Ml Inj IV Q5MIN PRN Chest Pain Nitroglycerin 0.4 mg 09/23/20 05:00 Nitroglycerin 0.4 Mg Tab Subl SL Q5M PRN Chest Pain Pantoprazole Sodium 40 mg 09/23/20 10:00 09/24/20 09:29 Pantoprazole 40 Mg Tab PO 40 mg QDAY ZAYDA Administration Sodium Chloride 10 ml 09/23/20 05:00 Sodium Chloride 0.9% 10 Ml Flush Syringe IV PRN PRN LINE FLUSH Nutrition/Malnutrition Assess - Dietary Evaluation Nutrition/Malnutrition Findings: Nutrition Notes Start: 09/24/20 11:51 Freq: Status: Active Protocol: Document 09/24/20 11:51 EN (Rec: 09/24/20 11:55 EN [email or web address]) Co-Sign 09/24/20 11:51 MK Nutrition Notes Need for Assessment generated from: home connect lpn,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 Pt reports UBW of 101kg with no recent wt loss. Pt reports hx of Gastric bypass surgery causing her to not finish her meals. Pt has been consuming 75% of meals with a good appetite and denies N/V/D. Pt does not like pork or grits and would like boiled eggs, pancakes and corn flakes for breakfast. Nutrition Intervention Anticipated Discharge Needs: Cardiac diet Revisit per MD consult or patient Sign Off request:
[2020-09-24] MEDS ORDERED: ENOXAPARIN 40 MG/0.4 ML INJ SUB-Q SCH (22:00)
[2020-09-25 05:56] LABS: BUN/Creatinine Ratio 12; Blood Urea Nitrogen 12 mg/dL (7-17); Calcium 8.6 mg/dL (8.4-10.2); Hemolysis Index 10
[2020-09-25] MEDS: FUROSEMIDE 40 MG/4 ML INJ IV SCH ×2 (06:28→17:42)
--- NOTE | 2020-09-25 11:23 | Progress Note ---
Assessment and Plan Assessment and plan: --Acute on chronic hypoxic respiratory failure; Current Visit: Yes Status: Acute. Plan to address problem: Due to COPD, DESHAWN on CPAP and severe PHT patient home oxygen dependent at 3 L Continue oxygen titrate O2 sats to more than 90% Nebulizers, inhalation steroids Consult pulmonary --Chronic lung disease with severe deterioration; Current Visit: Yes Status: Acute. Plan to address problem: not responding with emergency and observational care Patient has severe shortness of breath and wheezing Will continue nebulizers, add IV steroids, inhalation steroids Will consult pulmonary, --Severe pulmonary hypertension/on echo Current Visit: Yes Status: Acute. Plan to address problem: Secondary to severe chronic lung disease Continue oxygen titrate O2 sats to more than 90% IV diuretics, pulmonary consult -- Acute chest pain Current Visit: Yes Status: Acute. Plan to address problem: Atypical chest pain, symptoms resolved Conservative management Troponin x3 negative, follow echo report `and cardiology recommendation --Acute on chronic systolic CHF exacerbation Current Visit: Yes Status: Acute Plan to address problem: IV diuretics, beta-blockers, input output monitoring, low-sodium diet. Fluid restriction, HELEN inhibitors, follow echocardiogram Cardiology following -- History of coronary artery disease status post PCI Current Visit: Yes Status: Acute Plan to address problem: Continue current cardiac medications, cardiac diet. Supportive care --Severe ischemic cardiomyopathy: Current Visit: Yes Status: Acute. Plan to address problem: Continue current antifailure medications Check records from March. --AICD in place Current Visit: Yes Status: Acute. Plan to address problem: Interrogation if needed. --history of COPD Current Visit: Yes Status: Acute. Plan to address problem: Well compensated, on 3 L oxygen at home Oxygen titrate O2 sats to more than 90% Pulmonary evaluation if needed --History of obstructive sleep apnea; On CPAP at night, supportive care --History of gastric bypass surgery ; Current Visit: Yes Status: Acute patient has no new complaints -- Anemia; Probably chronic anemia closely monitor H&H and transfuse as needed Follow cardiology recommendations Closely monitor patient and adjust management as needed Plan of care reviewed with the patient and her nurse 09/24/2020; patient is evaluated by the cardiology, awaiting records from [facility] 09/25/2020; patient complains of shortness of breath, has history of COPD home oxygen dependent DESHAWN on CPAP and severe pulmonary hypertension, will consult pulmonary. History Interval history: I have seen and examined the patient at the bedside this morning Patient's chart and medications reviewed. Patient complains of shortness of breath, anxiety and agitation Cardiology has no plans of further work-up Patient sitting comfortably in the bed not in acute distress Vital signs noted Hospitalist Physical - Constitutional Vitals: Temp Pulse Resp BP Pulse Ox 98.8 F 72 18 106/79 100 09/25/20 04:34 09/25/20 04:34 09/25/20 04:34 09/25/20 04:34 09/25/20 08:50 General appearance: Present: no acute distress, well-nourished, obese - EENT Eyes: Present: PERRL, EOM intact - Neck Neck: Present: supple, normal ROM - Respiratory Respiratory effort: normal Respiratory: bilateral: diminished, rhonchi, negative: rales, wheezing - Cardiovascular Rhythm: regular Heart Sounds: Present: S1 & S2 - Extremities Extremities: no ischemia, No edema - Abdominal General gastrointestinal: soft, non-tender, non-distended, normal bowel sounds - Integumentary Integumentary: Present: clear, warm - Psychiatric Psychiatric: appropriate mood/affect, cooperative - Neurologic Neurologic: CNII-XII intact, moves all extremities HEART Score - HEART Score EKG: Non-specific Age: 45-65 Risk factors: > 3 risk factors or hx of atherosclerotic disease Troponin: Troponin T < 0.010 ng/mL (0.00-0.029) 09/23/20 08:52 Troponin: < normal limit - Critical Actions Critical Actions: 4-6 pts:12-16.6% risk of adverse cardiac event. Should be admitted Results - Labs CBC & Chem 7: 09/23/20 08:52 09/25/20 05:02 Labs: Laboratory Last Values WBC 4.0 K/mm3 (4.5-11.0) L 09/23/20 08:52 RBC 2.95 M/mm3 (3.65-5.03) L 09/23/20 08:52 Hgb 9.6 gm/dl (10.1-14.3) L 09/23/20 08:52 Hct 29.9 % (30.3-42.9) L 09/23/20 08:52 MCV 101 fl (79-97) H 09/23/20 08:52 MCH 33 pg (28-32) H 09/23/20 08:52 MCHC 32 % (30-34) 09/23/20 08:52 RDW 17.1 % (13.2-15.2) H 09/23/20 08:52 Plt Count 127 K/mm3 (140-440) L 09/23/20 08:52 Lymph % (Auto) 27.2 % (13.4-35.0) 09/23/20 08:52 [place] % (Auto) 9.7 % (0.0-7.3) H 09/23/20 08:52 Eos % (Auto) 3.1 % (0.0-4.3) 09/23/20 08:52 Baso % (Auto) 1.0 % (0.0-1.8) 09/23/20 08:52 Lymph # (Auto) 1.1 K/mm3 (1.2-5.4) L 09/23/20 08:52 [place] # (Auto) 0.4 K/mm3 (0.0-0.8) 09/23/20 08:52 Eos # (Auto) 0.1 K/mm3 (0.0-0.4) 09/23/20 08:52 Baso # (Auto) 0.0 K/mm3 (0.0-0.1) 09/23/20 08:52 Seg Neutrophils % 59.0 % (40.0-70.0) 09/23/20 08:52 Seg Neutrophils # 2.3 K/mm3 (1.8-7.7) 09/23/20 08:52 D-Dimer 580.22 ng/mlDDU (0-234) H 09/23/20 03:12 Sodium 141 mmol/L (137-145) 09/25/20 05:02 Potassium 3.8 mmol/L (3.6-5.0) 09/25/20 05:02 Chloride 102.3 mmol/L (98-107) 09/25/20 05:02 Carbon Dioxide 32 mmol/L (22-30) H 09/25/20 05:02 Anion Gap 11 mmol/L 09/25/20 05:02 BUN 12 mg/dL (7-17) 09/25/20 05:02 Creatinine 1.0 mg/dL (0.6-1.2) 09/25/20 05:02 Estimated GFR > 60 ml/min 09/25/20 05:02 BUN/Creatinine Ratio 12 % 09/25/20 05:02 Glucose 104 mg/dL (65-100) H 09/25/20 05:02 Calcium 8.6 mg/dL (8.4-10.2) 09/25/20 05:02 Troponin T < 0.010 ng/mL (0.00-0.029) 09/23/20 08:52 NT-Pro-B Natriuret Pep 7440 pg/mL (0-900) H 09/23/20 03:09 Triglycerides 76 mg/dL (2-149) 09/23/20 08:52 Cholesterol 133 mg/dL (50-199) 09/23/20 08:52 LDL Cholesterol Direct 76 mg/dL (50-130) 09/23/20 08:52 HDL Cholesterol 57 mg/dL (40-59) 09/23/20 08:52 Cholesterol/HDL Ratio 2.33 % 09/23/20 08:52 Nasal Screen MRSA (PCR) Negative (Negative) 09/23/20 22:50 - Diagnostic Impressions Diagnostic Impressions: Echocardiogram 09/23/20 05:15 Transthoracic Echocardiogram Indication: CHF BP: 126/92 HR: 79 Conclusions *The left ventricular chamber size is severely dilated. *Global left ventricular systolic function is severely decreased. *The estimated ejection fraction is 30-35%. *Abnormal left ventricular diastolic filling is observed, consistent with impaired relaxation. *The left atrium is severely dilated. *A pacemaker wire is visualized in the right ventricle. *There is mild aortic regurgitation. *There is moderate mitral regurgitation. *There is evidence of severe pulmonary hypertension. Findings Left Ventricle: The left ventricular chamber size is severely dilated. There is no left ventricular hypertrophy. There are multiple regional wall motion abnormalities. Global left ventricular systolic function is severely decreased. The estimated ejection fraction is 30-35%. Abnormal left ventricular diastolic filling is observed, consistent with impaired relaxation. Left Atrium: The left atrium is severely dilated. Right Ventricle: The right ventricle is mild to moderately dilated. The right ventricular global systolic function is normal. A pacemaker wire is visualized in the right ventricle. Right Atrium: The right atrium is mild to moderately dilated. Aortic Valve: Mild aortic leaflet calcification is visualized. Moderate aortic cusp sclerosis is present. There is mild aortic regurgitation. There is no evidence of aortic stenosis. Mitral Valve: Mild mitral leaflet calcification is visualized. There is moderate mitral regurgitation. Tricuspid Valve: The tricuspid valve leaflets are normal. There is moderate tricuspid regurgitation. The right ventricular systolic pressure is calculated at 74 mmHg. There is evidence of severe pulmonary hypertension. Pulmonic Valve: There is no evidence of pulmonic valve thickening. There is mild pulmonic regurgitation. Pericardium: A pericardial effusion is visualized. A trivial pericardial effusion is visualized. Aorta: The aorta appears normal. Venous: The inferior vena cava is dilated. Measurements Chambers 2D Name Value Normal Range IVSd (2D) 0.87 cm (0.6 - 1.1) LVPWd (2D) 0.88 cm (0.6 - 1.1) LVIDd (2D) 7.05 cm (3.7 - 5.6) LVIDs (2D) 6.48 cm (2 - 3.8) LV FS (2D) 8.1 % - EF Teichholz (2D) 17.4 % - Ao root diameter (2D) 3.15 cm (2 - 3.7) Volumes/Mass Name Value Normal Range LA ESV SP 4CH (A/L) 137.61 ml - LA ESV SP 2CH (A/L) 142.65 ml - LA ESV BP (A/L) 149.81 ml - LA ESV BP (A/L) index 72.72 ml/m2 - LA ESV SP 4CH (MOD) 128.1 ml - LA ESV SP 2CH (MOD) 137.5 ml - LA ESV BP (MOD) 141.82 ml - LA ESV BP (MOD) index 68.85 ml/m2 - Diastolic/Systolic Function Name Value Normal Range MV E-wave Vmax 1.29 m/sec - MV deceleration time 163.86 msec - MV A-wave Vmax 0.84 m/sec - MV E:A ratio 1.53 ratio - Aortic Valve Name Value Normal Range AV Vmax 1.43 m/sec - AV VTI 23.38 cm - AV peak gradient 8.15 mmHg - AV mean gradient 4.54 mmHg - LVOT diameter 2.07 cm - LVOT Vmax 1 m/sec - LVOT VTI 15.04 cm - LVOT peak gradient 3.99 mmHg - LVOT mean gradient 2.09 mmHg - SV LVOT 50.37 ml - DENIZ (continuity Vmax) 2.34 cm2 - DENIZ (continuity VTI) 2.15 cm2 - AR PHT 2361.45 msec - AR peak gradient 56.82 mmHg - Ascending Ao 3.92 cm - Mitral Valve Name Value Normal Range MR volume (PISA) 36.74 ml - MR flow (PISA) 108.33 ml/sec - MR ERO 0.2 cm2 - MR PISA radius 0.89 cm - MR alias Vmax 21.94 cm/sec - Tricuspid Valve Name Value Normal Range TR Vmax 4.07 m/sec - TR peak gradient 66 mmHg - RAP 8 mmHg - RVSP 74 mmHg - IVC diameter 2.6 cm (1.2 - 2.3) Pulmonic Valve/Qp:Qs Name Value Normal Range PV Vmax 1.12 m/sec - PV peak gradient 5.03 mmHg - SD end-diastolic Vmax 2.22 m/sec - PV acceleration time 72.31 msec - Corley/IV: Voiding Method External Female Catheter IV Catheter Type [Left Hand] INT / Saline Lock Active Medications - Current Medications Current Medications: Generic Name Dose Route Start Last Admin Trade Name Freq PRN Reason Stop Dose Admin Acetaminophen 650 mg 09/23/20 05:00 Acetaminophen 325 Mg Tab PO Q6H PRN Pain, Mild (1-3) Aspirin 81 mg 09/24/20 10:00 09/24/20 09:25 Aspirin 81 Mg Tab Chew PO 81 mg QDAY ZAYDA Administration Atorvastatin Calcium 40 mg 09/23/20 22:00 09/24/20 21:46 Atorvastatin 40 Mg Tab PO 40 mg QHS ZAYDA Administration Furosemide 40 mg 09/23/20 06:00 09/25/20 06:28 Furosemide 40 Mg/4 Ml Inj IV 40 mg BID@0600,1800 ZAYDA Administration Lisinopril 5 mg 09/23/20 10:00 09/24/20 09:26 Lisinopril 5 Mg Tab PO 5 mg QDAY ZYADA Administration Metoprolol Succinate 25 mg 09/24/20 10:00 09/24/20 09:26 Metoprolol Succinate Xl 25 Mg Tab PO 25 mg QDAY ZAYDA Administration Morphine Sulfate 2 mg 09/23/20 05:00 Morphine 2 Mg/1 Ml Inj IV Q5MIN PRN Chest Pain Nitroglycerin 0.4 mg 09/23/20 05:00 Nitroglycerin 0.4 Mg Tab Subl SL Q5M PRN Chest Pain Pantoprazole Sodium 40 mg 09/23/20 10:00 09/24/20 09:29 Pantoprazole 40 Mg Tab PO 40 mg QDAY ZAYDA Administration Sodium Chloride 10 ml 09/23/20 05:00 Sodium Chloride 0.9% 10 Ml Flush Syringe IV PRN PRN LINE FLUSH Nutrition/Malnutrition Assess - Dietary Evaluation Nutrition/Malnutrition Findings: Nutrition Notes Start: 09/24/20 11:51 Freq: Status: Active Protocol: Document 09/24/20 11:51 EN (Rec: 09/24/20 11:55 EN [id number]) Co-Sign 09/24/20 11:51 MK Nutrition Notes Need for Assessment generated from: neon tube bender,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 Pt reports UBW of 101kg with no recent wt loss. Pt reports hx of Gastric bypass surgery causing her to not finish her meals. Pt has been consuming 75% of meals with a good appetite and denies N/V/D. Pt does not like pork or grits and would like boiled eggs, pancakes and corn flakes for breakfast. Nutrition Intervention Anticipated Discharge Needs: Cardiac diet Revisit per MD consult or patient Sign Off request:
[2020-09-25] MEDS: METOPROLOL SUCCINATE XL 25 MG TAB PO SCH (11:34)
[2020-09-25] MEDS: PANTOPRAZOLE 40 MG TAB PO SCH (11:35)
[2020-09-25] MEDS: LISINOPRIL 5 MG TAB PO SCH (11:35)
[2020-09-25] MEDS: ASPIRIN 81 MG TAB CHEW PO SCH (11:36)
--- NOTE | 2020-09-25 12:47 | Consultation ---
History of Present Illness Consult date: 09/25/20 Requesting physician: KIMBER JAMISON Reason for consult: pulmonary hypertension History of present illness: 60 y/o obese black female, admitted with shortness of breath and found to have severe pulmonary HTN. Pulmonary consulted secondary to this, DESHAWN and COPD. Patient is a very poor historian but states that she has been short of breath for the past several weeks. She has not worn her CPAP for the last 4-5 months secondary to recent marriage not wanting her new to see her sleep like this. She also admits to not taking her advair on a daily basis but using her albuterol rescue inhaler as well as nebs daily. No sick contacts. PEr patient takes her diuretics daily. Remainder is negative. Past History Past Medical History: CAD, COPD, heart failure, stroke, other (as per HPI) Medications and Allergies Allergies Allergy/AdvReac Type Severity Reaction Status Date / Time heparin Allergy Unknown Verified 09/23/20 02:36 latex Allergy Unknown Verified 09/23/20 02:36 Penicillins Allergy Unknown Verified 09/23/20 02:36 Home Medications Medication Instructions Recorded Confirmed Last Taken Type Albuterol Sulfate [Albuterol 0.63% 0.83 mg IH TID PRN 09/23/20 09/23/20 Unknown History NEBS] AtorvaSTATin [Lipitor] 40 mg PO QHS 09/23/20 09/23/20 Unknown History Dapagliflozin Propanediol [Farxiga] 10 mg PO DAILY 09/23/20 09/23/20 Unknown History Fluticasone Propion/Salmeterol 1 ampul INHALATION DAILY 09/23/20 09/23/20 Unknown History [Wixela 250-50 Inhub] Furosemide [Lasix] 40 mg PO DAILY 09/23/20 09/23/20 Unknown History Gabapentin [Neurontin] 800 mg PO DAILY 09/23/20 09/23/20 Unknown History HYDROcodone/APAP 10-325 [[place] 1 tab PO Q8H PRN 09/23/20 09/23/20 Unknown History 10-325 mg TAB] Ibuprofen [Motrin] 800 mg PO Q8HR PRN 09/23/20 09/23/20 Unknown History Metoprolol Xl [Metoprolol 25 mg PO QDAY 09/23/20 09/23/20 Unknown History SUCCINATE ER TAB] Omeprazole 20 mg PO DAILY 09/23/20 09/23/20 Unknown History Sacubitril/Valsartan [Entresto 97 1 tab PO DAILY 09/23/20 09/23/20 Unknown History mg-103 mg Tablet] hydrOXYzine pamoate [hydrOXYzine 100 mg PO TID 09/23/20 09/23/20 Unknown History Pamoate] methOCARBAMOL [Robaxin TAB] 500 mg PO BID 09/23/20 09/23/20 Unknown History traZODone [Desyrel] 100 mg PO QHS 09/23/20 09/23/20 Unknown History Active Meds: Active Medications Acetaminophen (Acetaminophen 325 Mg Tab) 650 mg PO Q6H PRN PRN Reason: Pain, Mild (1-3) Albuterol (Albuterol 2.5 Mg/3 Ml Nebu) 2.5 mg IH Q6HRT [facility] Aspirin (Aspirin 81 Mg Tab Chew) 81 mg PO QDAY [facility] Last Admin: 09/25/20 11:36 Dose: 81 mg Documented by: Atorvastatin Calcium (Atorvastatin 40 Mg Tab) 40 mg PO QHS [facility] Last Admin: 09/24/20 21:46 Dose: 40 mg Documented by: Budesonide (Budesonide 0.5 Mg/2 Ml Nebu) 0.5 mg IH Q12HRT [facility] Furosemide (Furosemide 40 Mg/4 Ml Inj) 40 mg IV BID@0600,1800 [facility] Last Admin: 09/25/20 06:28 Dose: 40 mg Documented by: Lisinopril (Lisinopril 5 Mg Tab) 5 mg PO QDAY [facility] Last Admin: 09/25/20 11:35 Dose: 5 mg Documented by: Methylprednisolone Sodium Succinate (Methylprednisolone Sod Succinate 40 Mg/1 Ml Inj) 40 mg IV Q8HR [facility] Metoprolol Succinate (Metoprolol Succinate Xl 25 Mg Tab) 25 mg PO QDAY [facility] Last Admin: 09/25/20 11:34 Dose: 25 mg Documented by: Morphine Sulfate (Morphine 2 Mg/1 Ml Inj) 2 mg IV Q5MIN PRN PRN Reason: Chest Pain Nitroglycerin (Nitroglycerin 0.4 Mg Tab Subl) 0.4 mg SL Q5M PRN PRN Reason: Chest Pain Pantoprazole Sodium (Pantoprazole 40 Mg Tab) 40 mg PO QDAY [facility] Last Admin: 09/25/20 11:35 Dose: 40 mg Documented by: Sodium Chloride (Sodium Chloride 0.9% 10 Ml Flush Syringe) 10 ml IV PRN PRN PRN Reason: LINE FLUSH Physical Examination Vital signs: Vital Signs Temp 97.2 F L 09/23/20 02:26 Results - Laboratory Findings CBC and BMP: 09/23/20 08:52 09/25/20 05:02 PT/INR, D-dimer D-Dimer 580.22 ng/mlDDU (0-234) H 09/23/20 03:12 Abnormal lab findings: Abnormal Labs 09/23/20 09/23/20 09/23/20 03:09 03:09 03:12 WBC 4.4 L RBC 2.93 L Hgb 9.6 L Hct 29.8 L MCV 102 H MCH 33 H RDW 16.7 H Plt Count 135 L [place] % (Auto) 10.2 H Lymph # (Auto) 1.1 L D-Dimer 580.22 H Sodium 147 H Potassium Carbon Dioxide BUN 18 H Creatinine 1.3 H Glucose NT-Pro-B Natriuret Pep 7440 H 09/23/20 09/23/20 09/24/20 08:52 08:52 04:49 WBC 4.0 L RBC 2.95 L Hgb 9.6 L Hct 29.9 L MCV 101 H MCH 33 H RDW 17.1 H Plt Count 127 L [place] % (Auto) 9.7 H Lymph # (Auto) 1.1 L D-Dimer Sodium Potassium 3.4 L Carbon Dioxide BUN Creatinine Glucose 166 H NT-Pro-B Natriuret Pep 09/25/20 05:02 WBC RBC Hgb Hct MCV MCH RDW Plt Count [place] % (Auto) Lymph # (Auto) D-Dimer Sodium Potassium Carbon Dioxide 32 H BUN Creatinine Glucose 104 H NT-Pro-B Natriuret Pep Assessment and Plan 60 y/o female with severe pulmonary HTN, prior history of COPD admitted with fahad rtness of breath. 1. Patient readily admits to noncompliance with COPD therapy as well as DESHAWN th erapy. Will start patient on BID pulmicort and brovana here now. Will order CPAP therapy at night as well. Per patient wears 7cmH2O which is a very low setting. Will have RT's adjust to patient comfort and keep sats >88%. Agree with aggressive diuresis. Patient has been having worsening shortness of breath for quite some time. Doubt she will be free of this prior to discharge. Per patient she is planning on going back to [place]. I have strongly encouraged her to find a environmental services associate whom she can go to help with management of COPD. She also needs to write a list of all of her meds and keep that with her at all times. Continue supplemental O2. Will see PRN.
[2020-09-25] MEDS ORDERED: ALBUTEROL 2.5 MG/3 ML NEBU IH PRN (12:51)
[2020-09-25] MEDS ORDERED: ALBUTEROL 2.5 MG/3 ML NEBU IH SCH (14:00)
--- NOTE | 2020-09-25 14:00 | Progress Note ---
Assessment and Plan Pt resting in bed, still with c/o SOB and also c/o some intermittent chest pain overnight, on O2 via NC, anxious. tte reviewed - EF 30-35%, impaired relaxation, LA severely dilated, pacemaker wire in RV, mild AR, mod MR, severe pulm HTN with RVSP 74mmHg. Medical records from [place] obtained - pt underwent RHC on 09/17/2020 which showed severe pulm HTN. No ischemic evaluation on record. Cont present cardiac management, including IV lasix BID, toprol XL, lisinopril. Plan for lexiscan MPI stress test on 09/28/2020. The patient has been seen in conjunction with Dr. Lela Pace who agrees with the assessment and plan of care. - Patient Problems (1) Acute HFrEF (heart failure with reduced ejection fraction) Current Visit: Yes Status: Acute (2) Cardiomyopathy Current Visit: Yes Status: Chronic (3) CAD (coronary artery disease) Current Visit: Yes Status: Chronic (4) Stented coronary artery Current Visit: Yes Status: Chronic (5) Automatic implantable cardioverter-defibrillator in situ Current Visit: Yes Status: Chronic (6) Anemia Current Visit: Yes Status: Acute (7) Thrombocytopenia Current Visit: Yes Status: Acute (8) History of CVA (cerebrovascular accident) Current Visit: Yes Status: Chronic (9) COPD (chronic obstructive pulmonary disease) Current Visit: Yes Status: Chronic (10) Chronic respiratory failure Current Visit: Yes Status: Chronic (11) History of gastric bypass Current Visit: Yes Status: Chronic (12) Severe pulmonary hypertension Current Visit: Yes Status: Chronic (13) Chest pain Current Visit: Yes Status: Acute Subjective Date of service: 09/25/20 Principal diagnosis: HF Interval history: pt resting in bed, still with c/o SOB and also c/o some intermittent chest pain overnight, on O2 via NC, anxious. tele reviewed - in SR HR 70s, 2 and 4 beat runs NSVT noted, pt asymptomatic. Objective Last Vital Signs Temp 98.8 F 09/25/20 04:34 Pulse 75 09/25/20 11:35 Resp 18 09/25/20 04:34 BP 120/86 09/25/20 11:35 Pulse Ox 100 09/25/20 08:50 - Physical Examination General: No Apparent Distress HEENT: Positive: PERRL, Normocephaly, Mucus Membranes Moist Neck: Positive: neck supple, trachea midline Cardiac: Positive: Reg Rate and Rhythm, S1/S2 Lungs: Positive: Decreased Breath Sounds Neuro: Positive: Grossly Intact Abdomen: Negative: Tender Skin: Negative: Rash Musculoskeletal: No Pain Extremities: Present: edema (trace BLE) - Labs and Meds Comprehensive Metabolic Panel 09/25/20 Range/Units 05:02 Sodium 141 (137-145) mmol/L Potassium 3.8 (3.6-5.0) mmol/L Chloride 102.3 (98-107) mmol/L Carbon Dioxide 32 H (22-30) mmol/L BUN 12 (7-17) mg/dL Creatinine 1.0 (0.6-1.2) mg/dL Glucose 104 H (65-100) mg/dL Calcium 8.6 (8.4-10.2) mg/dL - Imaging and Cardiology EKG: report reviewed, image reviewed - Telemetry EKG Rhythm: Sinus Rhythm - EKG Sinus rhythms and dysrhythmias: sinus rhythm AV and intraventricular conduction: left bundle branch block
[2020-09-25] MEDS: methylPREDNISolone Sod Succinate 40 MG/1 ML INJ IV SCH ×2 (15:43→21:28)
[2020-09-25] MEDS: BUDESONIDE 0.5 MG/2 ML NEBU IH SCH (19:31)
[2020-09-25] MEDS: ARFORMOTEROL 15 MCG/2 ML NEBU IH SCH (19:32)
[2020-09-25] MEDS ORDERED: BUDESONIDE 0.5 MG/2 ML NEBU IH SCH (20:00)
[2020-09-26] MEDS: FUROSEMIDE 40 MG/4 ML INJ IV SCH ×2 (05:35→17:37)
[2020-09-26] MEDS: methylPREDNISolone Sod Succinate 40 MG/1 ML INJ IV SCH ×3 (05:35→21:54)
[2020-09-26] MEDS: METOPROLOL SUCCINATE XL 25 MG TAB PO SCH (10:12)
[2020-09-26] MEDS: ASPIRIN 81 MG TAB CHEW PO SCH (10:12)
[2020-09-26] MEDS: LISINOPRIL 5 MG TAB PO SCH (10:13)
[2020-09-26] MEDS: PANTOPRAZOLE 40 MG TAB PO SCH (10:13)
--- NOTE | 2020-09-26 10:19 | Progress Note ---
Assessment and Plan Assessment and plan: -- Chest pain Current Visit: Yes Status: Acute. Plan to address problem: Atypical chest pain, intermittent Cardiology following Possible stress test on Monday, September 28, 2020 Continue current management --Acute on chronic hypoxic respiratory failure; Current Visit: Yes Status: Acute. Plan to address problem: Due to COPD, DESHAWN on CPAP and severe PHT patient home oxygen dependent at 3 L Continue oxygen titrate O2 sats to more than 90% Nebulizers, inhalation steroids Pulmonary evaluation and recommendations noted and appreciated --Chronic lung disease with severe deterioration; Current Visit: Yes Status: Acute. Plan to address problem: not responding with emergency and observational care Patient has severe shortness of breath and wheezing Will continue nebulizers, add IV steroids, inhalation steroids Will consult pulmonary, --Severe pulmonary hypertension/on echo Current Visit: Yes Status: Acute. Plan to address problem: Secondary to severe chronic lung disease Continue oxygen titrate O2 sats to more than 90% IV diuretics, pulmonary consult --Acute on chronic systolic CHF exacerbation Current Visit: Yes Status: Acute Plan to address problem: IV diuretics, beta-blockers, input output monitoring, low-sodium diet. Fluid restriction, HELEN inhibitors, follow echocardiogram Cardiology following -- History of coronary artery disease status post PCI Current Visit: Yes Status: Acute Plan to address problem: Continue current cardiac medications, cardiac diet. Supportive care --Severe ischemic cardiomyopathy: Current Visit: Yes Status: Acute. Plan to address problem: Continue current antifailure medications Check records from March. --AICD in place Current Visit: Yes Status: Acute. Plan to address problem: Interrogation if needed. --history of COPD Current Visit: Yes Status: Acute. Plan to address problem: Well compensated, on 3 L oxygen at home Oxygen titrate O2 sats to more than 90% Pulmonary evaluation if needed --History of obstructive sleep apnea; On CPAP at night, supportive care --History of gastric bypass surgery ; Current Visit: Yes Status: Acute patient has no new complaints -- Anemia; Probably chronic anemia closely monitor H&H and transfuse as needed Follow cardiology recommendations Closely monitor patient and adjust management as needed Plan of care reviewed with the patient and her nurse 09/24/2020; patient is evaluated by the cardiology, awaiting records from [facility] 09/25/2020; patient complains of shortness of breath, has history of COPD home oxygen dependent DESHAWN on CPAP and severe pulmonary hypertension, will consult pulmonary. 09/26/2020; cardiology evaluated the patient, recommend stress test on 09/28/2020 Continue current management, pulmonary evaluation and recommendations noted and appreciated Plan of care reviewed with the patient and her nurse History Interval history: I have seen and examined the patient at the bedside today Patient's chart and medications reviewed Patient feels slightly better no new complaints Cardiology planning stress test on 09/28/2020 Vital signs noted Hospitalist Physical - Constitutional Vitals: Temp Pulse Resp BP Pulse Ox 98.0 F 65 18 123/83 98 09/26/20 04:07 09/26/20 07:50 09/26/20 07:50 09/26/20 04:07 09/26/20 07:51 General appearance: Present: no acute distress, well-nourished, obese - EENT Eyes: Present: PERRL, EOM intact - Neck Neck: Present: supple, normal ROM - Respiratory Respiratory effort: normal Respiratory: bilateral: diminished, negative: rales, rhonchi, wheezing - Cardiovascular Rhythm: regular Heart Sounds: Present: S1 & S2 - Extremities Extremities: no ischemia, No edema - Abdominal General gastrointestinal: soft, non-tender, non-distended, normal bowel sounds - Integumentary Integumentary: Present: clear, warm - Psychiatric Psychiatric: appropriate mood/affect, cooperative - Neurologic Neurologic: CNII-XII intact, moves all extremities HEART Score - HEART Score EKG: Non-specific Age: 45-65 Risk factors: > 3 risk factors or hx of atherosclerotic disease Troponin: Troponin T < 0.010 ng/mL (0.00-0.029) 09/23/20 08:52 Troponin: < normal limit - Critical Actions Critical Actions: 4-6 pts:12-16.6% risk of adverse cardiac event. Should be admitted Results - Labs CBC & Chem 7: 09/23/20 08:52 09/25/20 05:02 Labs: Laboratory Last Values WBC 4.0 K/mm3 (4.5-11.0) L 09/23/20 08:52 RBC 2.95 M/mm3 (3.65-5.03) L 09/23/20 08:52 Hgb 9.6 gm/dl (10.1-14.3) L 09/23/20 08:52 Hct 29.9 % (30.3-42.9) L 09/23/20 08:52 MCV 101 fl (79-97) H 09/23/20 08:52 MCH 33 pg (28-32) H 09/23/20 08:52 MCHC 32 % (30-34) 09/23/20 08:52 RDW 17.1 % (13.2-15.2) H 09/23/20 08:52 Plt Count 127 K/mm3 (140-440) L 09/23/20 08:52 Lymph % (Auto) 27.2 % (13.4-35.0) 09/23/20 08:52 [place] % (Auto) 9.7 % (0.0-7.3) H 09/23/20 08:52 Eos % (Auto) 3.1 % (0.0-4.3) 09/23/20 08:52 Baso % (Auto) 1.0 % (0.0-1.8) 09/23/20 08:52 Lymph # (Auto) 1.1 K/mm3 (1.2-5.4) L 09/23/20 08:52 [place] # (Auto) 0.4 K/mm3 (0.0-0.8) 09/23/20 08:52 Eos # (Auto) 0.1 K/mm3 (0.0-0.4) 09/23/20 08:52 Baso # (Auto) 0.0 K/mm3 (0.0-0.1) 09/23/20 08:52 Seg Neutrophils % 59.0 % (40.0-70.0) 09/23/20 08:52 Seg Neutrophils # 2.3 K/mm3 (1.8-7.7) 09/23/20 08:52 D-Dimer 580.22 ng/mlDDU (0-234) H 09/23/20 03:12 Sodium 141 mmol/L (137-145) 09/25/20 05:02 Potassium 3.8 mmol/L (3.6-5.0) 09/25/20 05:02 Chloride 102.3 mmol/L (98-107) 09/25/20 05:02 Carbon Dioxide 32 mmol/L (22-30) H 09/25/20 05:02 Anion Gap 11 mmol/L 09/25/20 05:02 BUN 12 mg/dL (7-17) 09/25/20 05:02 Creatinine 1.0 mg/dL (0.6-1.2) 09/25/20 05:02 Estimated GFR > 60 ml/min 09/25/20 05:02 BUN/Creatinine Ratio 12 % 09/25/20 05:02 Glucose 104 mg/dL (65-100) H 09/25/20 05:02 Calcium 8.6 mg/dL (8.4-10.2) 09/25/20 05:02 Troponin T < 0.010 ng/mL (0.00-0.029) 09/23/20 08:52 NT-Pro-B Natriuret Pep 7440 pg/mL (0-900) H 09/23/20 03:09 Triglycerides 76 mg/dL (2-149) 09/23/20 08:52 Cholesterol 133 mg/dL (50-199) 09/23/20 08:52 LDL Cholesterol Direct 76 mg/dL (50-130) 09/23/20 08:52 HDL Cholesterol 57 mg/dL (40-59) 09/23/20 08:52 Cholesterol/HDL Ratio 2.33 % 09/23/20 08:52 Nasal Screen MRSA (PCR) Negative (Negative) 09/23/20 22:50 - Diagnostic Impressions Diagnostic Impressions: Echocardiogram 09/23/20 05:15 Transthoracic Echocardiogram Indication: CHF BP: 126/92 HR: 79 Conclusions *The left ventricular chamber size is severely dilated. *Global left ventricular systolic function is severely decreased. *The estimated ejection fraction is 30-35%. *Abnormal left ventricular diastolic filling is observed, consistent with impaired relaxation. *The left atrium is severely dilated. *A pacemaker wire is visualized in the right ventricle. *There is mild aortic regurgitation. *There is moderate mitral regurgitation. *There is evidence of severe pulmonary hypertension. Findings Left Ventricle: The left ventricular chamber size is severely dilated. There is no left ventricular hypertrophy. There are multiple regional wall motion abnormalities. Global left ventricular systolic function is severely decreased. The estimated ejection fraction is 30-35%. Abnormal left ventricular diastolic filling is observed, consistent with impaired relaxation. Left Atrium: The left atrium is severely dilated. Right Ventricle: The right ventricle is mild to moderately dilated. The right ventricular global systolic function is normal. A pacemaker wire is visualized in the right ventricle. Right Atrium: The right atrium is mild to moderately dilated. Aortic Valve: Mild aortic leaflet calcification is visualized. Moderate aortic cusp sclerosis is present. There is mild aortic regurgitation. There is no evidence of aortic stenosis. Mitral Valve: Mild mitral leaflet calcification is visualized. There is moderate mitral regurgitation. Tricuspid Valve: The tricuspid valve leaflets are normal. There is moderate tricuspid regurgitation. The right ventricular systolic pressure is calculated at 74 mmHg. There is evidence of severe pulmonary hypertension. Pulmonic Valve: There is no evidence of pulmonic valve thickening. There is mild pulmonic regurgitation. Pericardium: A pericardial effusion is visualized. A trivial pericardial effusion is visualized. Aorta: The aorta appears normal. Venous: The inferior vena cava is dilated. Measurements Chambers 2D Name Value Normal Range IVSd (2D) 0.87 cm (0.6 - 1.1) LVPWd (2D) 0.88 cm (0.6 - 1.1) LVIDd (2D) 7.05 cm (3.7 - 5.6) LVIDs (2D) 6.48 cm (2 - 3.8) LV FS (2D) 8.1 % - EF Teichholz (2D) 17.4 % - Ao root diameter (2D) 3.15 cm (2 - 3.7) Volumes/Mass Name Value Normal Range LA ESV SP 4CH (A/L) 137.61 ml - LA ESV SP 2CH (A/L) 142.65 ml - LA ESV BP (A/L) 149.81 ml - LA ESV BP (A/L) index 72.72 ml/m2 - LA ESV SP 4CH (MOD) 128.1 ml - LA ESV SP 2CH (MOD) 137.5 ml - LA ESV BP (MOD) 141.82 ml - LA ESV BP (MOD) index 68.85 ml/m2 - Diastolic/Systolic Function Name Value Normal Range MV E-wave Vmax 1.29 m/sec - MV deceleration time 163.86 msec - MV A-wave Vmax 0.84 m/sec - MV E:A ratio 1.53 ratio - Aortic Valve Name Value Normal Range AV Vmax 1.43 m/sec - AV VTI 23.38 cm - AV peak gradient 8.15 mmHg - AV mean gradient 4.54 mmHg - LVOT diameter 2.07 cm - LVOT Vmax 1 m/sec - LVOT VTI 15.04 cm - LVOT peak gradient 3.99 mmHg - LVOT mean gradient 2.09 mmHg - SV LVOT 50.37 ml - DENIZ (continuity Vmax) 2.34 cm2 - DENIZ (continuity VTI) 2.15 cm2 - AR PHT 2361.45 msec - AR peak gradient 56.82 mmHg - Ascending Ao 3.92 cm - Mitral Valve Name Value Normal Range MR volume (PISA) 36.74 ml - MR flow (PISA) 108.33 ml/sec - MR ERO 0.2 cm2 - MR PISA radius 0.89 cm - MR alias Vmax 21.94 cm/sec - Tricuspid Valve Name Value Normal Range TR Vmax 4.07 m/sec - TR peak gradient 66 mmHg - RAP 8 mmHg - RVSP 74 mmHg - IVC diameter 2.6 cm (1.2 - 2.3) Pulmonic Valve/Qp:Qs Name Value Normal Range PV Vmax 1.12 m/sec - PV peak gradient 5.03 mmHg - WI end-diastolic Vmax 2.22 m/sec - PV acceleration time 72.31 msec - [place]/IV: Voiding Method Toilet IV Catheter Type [Left Hand] INT / Saline Lock Active Medications - Current Medications Current Medications: Generic Name Dose Route Start Last Admin Trade Name Freq PRN Reason Stop Dose Admin Acetaminophen 650 mg 09/23/20 05:00 Acetaminophen 325 Mg Tab PO Q6H PRN Pain, Mild (1-3) Albuterol 2.5 mg 09/25/20 12:51 Albuterol 2.5 Mg/3 Ml Nebu IH Q6HRT PRN Shortness Of Breath Arformoterol Tartrate 15 mcg 09/25/20 20:00 09/25/20 19:32 Arformoterol 15 Mcg/2 Ml Nebu IH 15 mcg Q12HRT ZAYDA Administration Aspirin 81 mg 09/24/20 10:00 09/26/20 10:12 Aspirin 81 Mg Tab Chew PO 81 mg QDAY ZAYDA Administration Atorvastatin Calcium 40 mg 09/23/20 22:00 09/25/20 21:28 Atorvastatin 40 Mg Tab PO 40 mg QHS ZAYDA Administration Budesonide 0.5 mg 09/25/20 20:00 09/25/20 19:31 Budesonide 0.5 Mg/2 Ml Nebu IH 0.5 mg Q12HRT ZAYDA Administration Furosemide 40 mg 09/23/20 06:00 09/26/20 05:35 Furosemide 40 Mg/4 Ml Inj IV 40 mg BID@0600,1800 ZAYAD Administration Lisinopril 5 mg 09/23/20 10:00 09/26/20 10:13 Lisinopril 5 Mg Tab PO 5 mg QDAY ZAYDA Administration Methylprednisolone Sodium Succinate 40 mg 09/25/20 14:00 09/26/20 05:35 Methylprednisolone Sod Succinate 40 Mg/1 Ml Inj IV 40 mg Q8HR ZAYDA Administration Metoprolol Succinate 25 mg 09/24/20 10:00 09/26/20 10:12 Metoprolol Succinate Xl 25 Mg Tab PO 25 mg QDAY ZAYDA Administration Morphine Sulfate 2 mg 09/23/20 05:00 Morphine 2 Mg/1 Ml Inj IV Q5MIN PRN Chest Pain Nitroglycerin 0.4 mg 09/23/20 05:00 Nitroglycerin 0.4 Mg Tab Subl SL Q5M PRN Chest Pain Pantoprazole Sodium 40 mg 09/23/20 10:00 09/26/20 10:13 Pantoprazole 40 Mg Tab PO 40 mg QDAY ZAYDA Administration Sodium Chloride 10 ml 09/23/20 05:00 Sodium Chloride 0.9% 10 Ml Flush Syringe IV PRN PRN LINE FLUSH Nutrition/Malnutrition Assess - Dietary Evaluation Nutrition/Malnutrition Findings: Nutrition Notes Start: 09/24/20 11:51 Freq: Status: Active Protocol: Document 09/24/20 11:51 EN (Rec: 09/24/20 11:55 EN [id number]) Co-Sign 09/24/20 11:51 MK Nutrition Notes Need for Assessment 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 Pt reports UBW of 101kg with no recent wt loss. Pt reports hx of Gastric bypass surgery causing her to not finish her meals. Pt has been consuming 75% of meals with a good appetite and denies N/V/D. Pt does not like pork or grits and would like boiled eggs, pancakes and corn flakes for breakfast. Nutrition Intervention Anticipated Discharge Needs: Cardiac diet Revisit per MD consult or patient Sign Off request:
[2020-09-26] MEDS: BUDESONIDE 0.5 MG/2 ML NEBU IH SCH ×2 (10:51→20:21)
[2020-09-26] MEDS: ARFORMOTEROL 15 MCG/2 ML NEBU IH SCH ×3 (10:52→20:22)
--- NOTE | 2020-09-26 13:49 | Progress Note ---
Assessment and Plan Atypical chest pain Pulmonary hypertension RVSP 74mmHg Acute on chronic HFrEF 30-35% COPD/chronic respiratory failure home oxygen/DESHAWN CAD/stent/2009 ICD History of gastric bypass Agree with diuresis Strict I's and O's Plan for myocardial perfusion scan Monday Recent right heart cath in September 17, 2020 revealing severe pulmonary hypert ension Subjective Date of service: 09/26/20 Principal diagnosis: HF Interval history: Patient sitting in bed states that she feels much better. She denies any chest pain. She states that her breathing is much better. Objective Vital Signs Temp Pulse Pulse Resp Resp BP Pulse Ox 09/26/20 11:25 66 09/26/20 07:51 98 09/26/20 07:50 65 18 09/26/20 04:07 98.0 F 63 16 123/83 98 09/26/20 04:00 74 09/26/20 00:14 97.9 F 79 16 107/71 98 09/25/20 20:13 99 09/25/20 19:47 98.4 F 78 14 123/84 99 09/25/20 19:32 82 15 09/25/20 17:42 98.4 F 66 18 117/84 97 - Physical Examination General: No Apparent Distress HEENT: Positive: PERRL, Normocephaly, Mucus Membranes Moist Neck: Positive: neck supple, trachea midline Cardiac: Positive: Reg Rate and Rhythm Lungs: Positive: clear to auscultation, Normal Breath Sounds Neuro: Positive: Grossly Intact Abdomen: Positive: Soft, Active Bowel Sounds. Negative: Tender Skin: Negative: Rash Musculoskeletal: No Pain Extremities: Present: edema (trace BLE) - Imaging and Cardiology EKG: report reviewed, image reviewed - EKG Sinus rhythms and dysrhythmias: sinus rhythm AV and intraventricular conduction: left bundle branch block
[2020-09-27] MEDS: FUROSEMIDE 40 MG/4 ML INJ IV SCH ×2 (05:56→17:39)
[2020-09-27] MEDS: methylPREDNISolone Sod Succinate 40 MG/1 ML INJ IV SCH ×3 (05:57→21:40)
[2020-09-27] MEDS: ARFORMOTEROL 15 MCG/2 ML NEBU IH SCH ×2 (07:25→20:21)
[2020-09-27] MEDS: BUDESONIDE 0.5 MG/2 ML NEBU IH SCH ×2 (07:25→20:21)
--- NOTE | 2020-09-27 08:24 | Progress Note ---
Assessment and Plan Assessment and plan: -- Chest pain Current Visit: Yes Status: Acute. Plan to address problem: Atypical chest pain, intermittent Cardiology following Possible stress test on Monday, September 28, 2020 Continue current management --Insomnia: Current Visit: Yes Status: Acute. Plan to address problem: Ambien 5 mg nightly as needed for insomnia --Acute on chronic hypoxic respiratory failure; Current Visit: Yes Status: Acute. Plan to address problem: Due to COPD, DESHAWN on CPAP and severe PHT patient home oxygen dependent at 3 L Continue oxygen titrate O2 sats to more than 90%. Nebulizers, inhalation steroids Pulmonary evaluation and recommendations noted and appreciated --Chronic lung disease with severe deterioration; Current Visit: Yes Status: Acute. Plan to address problem: not responding with emergency and observational care Patient has severe shortness of breath and wheezing Will continue nebulizers, add IV steroids, inhalation steroids Will consult pulmonary, --Severe pulmonary hypertension/on echo Current Visit: Yes Status: Acute. Plan to address problem: Secondary to severe chronic lung disease Continue oxygen titrate O2 sats to more than 90% IV diuretics, pulmonary consult --Acute on chronic systolic CHF exacerbation Current Visit: Yes Status: Acute Plan to address problem: IV diuretics, beta-blockers, input output monitoring, low-sodium diet. Fluid restriction, HELEN inhibitors, follow echocardiogram Cardiology following -- History of coronary artery disease status post PCI Current Visit: Yes Status: Acute Plan to address problem: Continue current cardiac medications, cardiac diet. Supportive care --Severe ischemic cardiomyopathy: Current Visit: Yes Status: Acute. Plan to address problem: Continue current antifailure medications Check records from March. --AICD in place Current Visit: Yes Status: Acute. Plan to address problem: Interrogation if needed. --history of COPD Current Visit: Yes Status: Acute. Plan to address problem: Well compensated, on 3 L oxygen at home Oxygen titrate O2 sats to more than 90% Pulmonary evaluation if needed --History of obstructive sleep apnea; On CPAP at night, supportive care --History of gastric bypass surgery ; Current Visit: Yes Status: Acute patient has no new complaints -- Anemia; Probably chronic anemia closely monitor H&H and transfuse as needed Follow consultants recommendations Closely monitor patient and adjust management as needed Plan of care reviewed with the patient and her nurse 09/24/2020; patient is evaluated by the cardiology, awaiting records from [facility] 09/25/2020; patient complains of shortness of breath, has history of COPD home oxygen dependent DESHAWN on CPAP and severe pulmonary hypertension, will consult pulmonary. 09/26/2020; cardiology evaluated the patient, recommend stress test on 09/28/2020 Continue current management, pulmonary evaluation and recommendations noted and appreciated Plan of care reviewed with the patient and her nurse 09/27/2020; continue CPAP at night, patient feels slightly better Possible stress test tomorrow per cardiology, advised to ambulate as tolerated History Interval history: I have seen and examined the patient at the bedside Patient feels slightly better anxious to go home Could not sleep last night due to noise of the CPAP Denies chest pain or shortness of breath Patient is scheduled for stress test tomorrow by cardiology Vital signs reviewed Hospitalist Physical - Constitutional Vitals: Temp Pulse Resp BP Pulse Ox 97.6 F 71 18 101/64 94 09/27/20 04:58 09/27/20 04:58 09/27/20 04:58 09/27/20 04:58 09/27/20 04:58 General appearance: Present: no acute distress, well-nourished, obese - EENT Eyes: Present: PERRL, EOM intact - Neck Neck: Present: supple, normal ROM - Respiratory Respiratory effort: normal Respiratory: bilateral: diminished, negative: rales, rhonchi, wheezing - Cardiovascular Rhythm: regular Heart Sounds: Present: S1 & S2 - Extremities Extremities: no ischemia, No edema - Abdominal General gastrointestinal: soft, non-tender, non-distended, normal bowel sounds - Integumentary Integumentary: Present: clear, warm - Psychiatric Psychiatric: appropriate mood/affect, cooperative - Neurologic Neurologic: moves all extremities HEART Score - HEART Score EKG: Non-specific Age: 45-65 Risk factors: > 3 risk factors or hx of atherosclerotic disease Troponin: Troponin T < 0.010 ng/mL (0.00-0.029) 09/23/20 08:52 Troponin: < normal limit - Critical Actions Critical Actions: 4-6 pts:12-16.6% risk of adverse cardiac event. Should be admitted Results - Labs CBC & Chem 7: 09/23/20 08:52 09/25/20 05:02 Labs: Laboratory Last Values WBC 4.0 K/mm3 (4.5-11.0) L 09/23/20 08:52 RBC 2.95 M/mm3 (3.65-5.03) L 09/23/20 08:52 Hgb 9.6 gm/dl (10.1-14.3) L 09/23/20 08:52 Hct 29.9 % (30.3-42.9) L 09/23/20 08:52 MCV 101 fl (79-97) H 09/23/20 08:52 MCH 33 pg (28-32) H 09/23/20 08:52 MCHC 32 % (30-34) 09/23/20 08:52 RDW 17.1 % (13.2-15.2) H 09/23/20 08:52 Plt Count 127 K/mm3 (140-440) L 09/23/20 08:52 Lymph % (Auto) 27.2 % (13.4-35.0) 09/23/20 08:52 [place] % (Auto) 9.7 % (0.0-7.3) H 09/23/20 08:52 Eos % (Auto) 3.1 % (0.0-4.3) 09/23/20 08:52 Baso % (Auto) 1.0 % (0.0-1.8) 09/23/20 08:52 Lymph # (Auto) 1.1 K/mm3 (1.2-5.4) L 09/23/20 08:52 [place] # (Auto) 0.4 K/mm3 (0.0-0.8) 09/23/20 08:52 Eos # (Auto) 0.1 K/mm3 (0.0-0.4) 09/23/20 08:52 Baso # (Auto) 0.0 K/mm3 (0.0-0.1) 09/23/20 08:52 Seg Neutrophils % 59.0 % (40.0-70.0) 09/23/20 08:52 Seg Neutrophils # 2.3 K/mm3 (1.8-7.7) 09/23/20 08:52 D-Dimer 580.22 ng/mlDDU (0-234) H 09/23/20 03:12 Sodium 141 mmol/L (137-145) 09/25/20 05:02 Potassium 3.8 mmol/L (3.6-5.0) 09/25/20 05:02 Chloride 102.3 mmol/L (98-107) 09/25/20 05:02 Carbon Dioxide 32 mmol/L (22-30) H 09/25/20 05:02 Anion Gap 11 mmol/L 09/25/20 05:02 BUN 12 mg/dL (7-17) 09/25/20 05:02 Creatinine 1.0 mg/dL (0.6-1.2) 09/25/20 05:02 Estimated GFR > 60 ml/min 09/25/20 05:02 BUN/Creatinine Ratio 12 % 09/25/20 05:02 Glucose 104 mg/dL (65-100) H 09/25/20 05:02 Calcium 8.6 mg/dL (8.4-10.2) 09/25/20 05:02 Troponin T < 0.010 ng/mL (0.00-0.029) 09/23/20 08:52 NT-Pro-B Natriuret Pep 7440 pg/mL (0-900) H 09/23/20 03:09 Triglycerides 76 mg/dL (2-149) 09/23/20 08:52 Cholesterol 133 mg/dL (50-199) 09/23/20 08:52 LDL Cholesterol Direct 76 mg/dL (50-130) 09/23/20 08:52 HDL Cholesterol 57 mg/dL (40-59) 09/23/20 08:52 Cholesterol/HDL Ratio 2.33 % 09/23/20 08:52 Nasal Screen MRSA (PCR) Negative (Negative) 09/23/20 22:50 - Diagnostic Impressions Diagnostic Impressions: Echocardiogram 09/23/20 05:15 Transthoracic Echocardiogram Indication: CHF BP: 126/92 HR: 79 Conclusions *The left ventricular chamber size is severely dilated. *Global left ventricular systolic function is severely decreased. *The estimated ejection fraction is 30-35%. *Abnormal left ventricular diastolic filling is observed, consistent with impaired relaxation. *The left atrium is severely dilated. *A pacemaker wire is visualized in the right ventricle. *There is mild aortic regurgitation. *There is moderate mitral regurgitation. *There is evidence of severe pulmonary hypertension. Findings Left Ventricle: The left ventricular chamber size is severely dilated. There is no left ventricular hypertrophy. There are multiple regional wall motion abnormalities. Global left ventricular systolic function is severely decreased. The estimated ejection fraction is 30-35%. Abnormal left ventricular diastolic filling is observed, consistent with impaired relaxation. Left Atrium: The left atrium is severely dilated. Right Ventricle: The right ventricle is mild to moderately dilated. The right ventricular global systolic function is normal. A pacemaker wire is visualized in the right ventricle. Right Atrium: The right atrium is mild to moderately dilated. Aortic Valve: Mild aortic leaflet calcification is visualized. Moderate aortic cusp sclerosis is present. There is mild aortic regurgitation. There is no evidence of aortic stenosis. Mitral Valve: Mild mitral leaflet calcification is visualized. There is moderate mitral regurgitation. Tricuspid Valve: The tricuspid valve leaflets are normal. There is moderate tricuspid regurgitation. The right ventricular systolic pressure is calculated at 74 mmHg. There is evidence of severe pulmonary hypertension. Pulmonic Valve: There is no evidence of pulmonic valve thickening. There is mild pulmonic regurgitation. Pericardium: A pericardial effusion is visualized. A trivial pericardial effusion is visualized. Aorta: The aorta appears normal. Venous: The inferior vena cava is dilated. Measurements Chambers 2D Name Value Normal Range IVSd (2D) 0.87 cm (0.6 - 1.1) LVPWd (2D) 0.88 cm (0.6 - 1.1) LVIDd (2D) 7.05 cm (3.7 - 5.6) LVIDs (2D) 6.48 cm (2 - 3.8) LV FS (2D) 8.1 % - EF Teichholz (2D) 17.4 % - Ao root diameter (2D) 3.15 cm (2 - 3.7) Volumes/Mass Name Value Normal Range LA ESV SP 4CH (A/L) 137.61 ml - LA ESV SP 2CH (A/L) 142.65 ml - LA ESV BP (A/L) 149.81 ml - LA ESV BP (A/L) index 72.72 ml/m2 - LA ESV SP 4CH (MOD) 128.1 ml - LA ESV SP 2CH (MOD) 137.5 ml - LA ESV BP (MOD) 141.82 ml - LA ESV BP (MOD) index 68.85 ml/m2 - Diastolic/Systolic Function Name Value Normal Range MV E-wave Vmax 1.29 m/sec - MV deceleration time 163.86 msec - MV A-wave Vmax 0.84 m/sec - MV E:A ratio 1.53 ratio - Aortic Valve Name Value Normal Range AV Vmax 1.43 m/sec - AV VTI 23.38 cm - AV peak gradient 8.15 mmHg - AV mean gradient 4.54 mmHg - LVOT diameter 2.07 cm - LVOT Vmax 1 m/sec - LVOT VTI 15.04 cm - LVOT peak gradient 3.99 mmHg - LVOT mean gradient 2.09 mmHg - SV LVOT 50.37 ml - DENIZ (continuity Vmax) 2.34 cm2 - DENIZ (continuity VTI) 2.15 cm2 - AR PHT 2361.45 msec - AR peak gradient 56.82 mmHg - Ascending Ao 3.92 cm - Mitral Valve Name Value Normal Range MR volume (PISA) 36.74 ml - MR flow (PISA) 108.33 ml/sec - MR ERO 0.2 cm2 - MR PISA radius 0.89 cm - MR alias Vmax 21.94 cm/sec - Tricuspid Valve Name Value Normal Range TR Vmax 4.07 m/sec - TR peak gradient 66 mmHg - RAP 8 mmHg - RVSP 74 mmHg - IVC diameter 2.6 cm (1.2 - 2.3) Pulmonic Valve/Qp:Qs Name Value Normal Range PV Vmax 1.12 m/sec - PV peak gradient 5.03 mmHg - MT end-diastolic Vmax 2.22 m/sec - PV acceleration time 72.31 msec - Corley/IV: Voiding Method Toilet IV Catheter Type [Left Hand] INT / Saline Lock Active Medications - Current Medications Current Medications: Generic Name Dose Route Start Last Admin Trade Name Freq PRN Reason Stop Dose Admin Acetaminophen 650 mg 09/23/20 05:00 09/27/20 00:37 Acetaminophen 325 Mg Tab PO 650 mg Q6H PRN Administration Pain, Mild (1-3) Albuterol 2.5 mg 09/25/20 12:51 Albuterol 2.5 Mg/3 Ml Nebu IH Q6HRT PRN Shortness Of Breath Arformoterol Tartrate 15 mcg 09/25/20 20:00 09/27/20 07:25 Arformoterol 15 Mcg/2 Ml Nebu IH 15 mcg Q12HRT ZAYDA Administration Aspirin 81 mg 09/24/20 10:00 09/26/20 10:12 Aspirin 81 Mg Tab Chew PO 81 mg QDAY ZAYDA Administration Atorvastatin Calcium 40 mg 09/23/20 22:00 09/26/20 21:53 Atorvastatin 40 Mg Tab PO 40 mg QHS ZAYDA Administration Budesonide 0.5 mg 09/25/20 20:00 09/27/20 07:25 Budesonide 0.5 Mg/2 Ml Nebu IH 0.5 mg Q12HRT ZAYDA Administration Furosemide 40 mg 09/23/20 06:00 09/27/20 05:56 Furosemide 40 Mg/4 Ml Inj IV 40 mg BID@0600,1800 ZAYDA Administration Lisinopril 5 mg 09/23/20 10:00 09/26/20 10:13 Lisinopril 5 Mg Tab PO 5 mg QDAY ZAYDA Administration Methylprednisolone Sodium Succinate 40 mg 09/25/20 14:00 09/27/20 05:57 Methylprednisolone Sod Succinate 40 Mg/1 Ml Inj IV 40 mg Q8HR ZAYDA Administration Metoprolol Succinate 25 mg 09/24/20 10:00 09/26/20 10:12 Metoprolol Succinate Xl 25 Mg Tab PO 25 mg QDAY ZAYDA Administration Morphine Sulfate 2 mg 09/23/20 05:00 Morphine 2 Mg/1 Ml Inj IV Q5MIN PRN Chest Pain Nitroglycerin 0.4 mg 09/23/20 05:00 Nitroglycerin 0.4 Mg Tab Subl SL Q5M PRN Chest Pain Pantoprazole Sodium 40 mg 09/23/20 10:00 09/26/20 10:13 Pantoprazole 40 Mg Tab PO 40 mg QDAY ZAYDA Administration Sodium Chloride 10 ml 09/23/20 05:00 Sodium Chloride 0.9% 10 Ml Flush Syringe IV PRN PRN LINE FLUSH Nutrition/Malnutrition Assess - Dietary Evaluation Nutrition/Malnutrition Findings: Nutrition Notes Start: 09/24/20 11:51 Freq: Status: Active Protocol: Document 09/24/20 11:51 EN (Rec: 09/24/20 11:55 EN [id number]) Co-Sign 09/24/20 11:51 MK Nutrition Notes Need for Assessment generated from: zipper setter chainstitch,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 Pt reports UBW of 101kg with no recent wt loss. Pt reports hx of Gastric bypass surgery causing her to not finish her meals. Pt has been consuming 75% of meals with a good appetite and denies N/V/D. Pt does not like pork or grits and would like boiled eggs, pancakes and corn flakes for breakfast. Nutrition Intervention Anticipated Discharge Needs: Cardiac diet Revisit per MD consult or patient Sign Off request:
[2020-09-27] MEDS: LISINOPRIL 5 MG TAB PO SCH (10:04)
[2020-09-27] MEDS: ASPIRIN 81 MG TAB CHEW PO SCH (10:04)
[2020-09-27] MEDS: METOPROLOL SUCCINATE XL 25 MG TAB PO SCH (10:04)
[2020-09-27] MEDS: PANTOPRAZOLE 40 MG TAB PO SCH (10:06)
--- NOTE | 2020-09-27 11:29 | Progress Note ---
Assessment and Plan Atypical chest pain Pulmonary hypertension RVSP 74mmHg Acute on chronic HFrEF 30-35% COPD/chronic respiratory failure home oxygen/DESHAWN CAD/stent/2009 ICD History of gastric bypass Agree with diuresis Strict I's and O's Recommend BMP/Mg++ Plan for myocardial perfusion scan Monday Recent right heart cath in September 17, 2020 revealing severe pulmonary hypertension Subjective Date of service: 09/27/20 Principal diagnosis: HF Interval history: Patient sitting in bed without any complaints of shortness of breath or chest pain. Objective Vital Signs Temp Pulse Pulse Resp Resp BP Pulse Ox 09/27/20 10:04 90 09/27/20 07:47 97.5 F L 74 18 105/68 98 09/27/20 07:25 74 20 98 09/27/20 04:58 97.6 F 71 18 101/64 94 09/27/20 03:36 97 H 20 99 09/27/20 00:32 98.2 F 80 20 128/85 100 09/26/20 23:15 79 16 100 09/26/20 22:00 86 09/26/20 20:38 97.7 F 83 18 113/72 98 09/26/20 20:30 100 09/26/20 20:24 82 20 09/26/20 17:33 81 146/91 100 - Physical Examination General: No Apparent Distress HEENT: Positive: PERRL, Normocephaly, Mucus Membranes Moist Neck: Positive: neck supple, trachea midline Cardiac: Positive: Reg Rate and Rhythm, Systolic Murmur Lungs: Positive: Decreased Breath Sounds Neuro: Positive: Grossly Intact Abdomen: Positive: Soft, Active Bowel Sounds. Negative: Tender Skin: Negative: Rash Musculoskeletal: No Pain Extremities: Present: edema (trace BLE), warm - Imaging and Cardiology EKG: report reviewed, image reviewed - EKG Sinus rhythms and dysrhythmias: sinus rhythm AV and intraventricular conduction: left bundle branch block
[2020-09-27] MEDS ORDERED: ZOLPIDEM 5 MG TAB PO PRN (12:27)
--- NOTE | 2020-09-27 12:37 | Progress Note ---
Assessment and Plan 60 y/o female with severe pulmonary HTN, prior history of COPD admitted with shortness of breath. 09/27/20: No new recs. Continue PPV at night while in house and she should resume her home therapy with plans to be more consistent. Follow up/establish pulmonary in [place]. 1. Patient readily admits to noncompliance with COPD therapy as well as DESHAWN therapy. Will start patient on BID pulmicort and brovana here now. Will order CPAP therapy at night as well. Per patient wears 7cmH2O which is a very low setting. Will have RT's adjust to patient comfort and keep sats >88%. Agree with aggressive diuresis. Patient has been having worsening shortness of breath for quite some time. Doubt she will be free of this prior to discharge. Per patient she is planning on going back to [place]. I have strongly encouraged her to find a world travel counselor whom she can go to help with management of COPD. She also needs to write a list of all of her meds and keep that with her at all times. Continue supplemental O2. Will see PRN. Subjective Date of service: 09/27/20 Principal diagnosis: HF Interval history: Patient wore nasal CPAP last night. Tolerated well. No complaints. Objective Vital Signs - 12hr 09/27/20 09/27/20 09/27/20 03:36 04:58 07:25 Temperature 97.6 F Pulse Rate 97 H 71 Pulse Rate [ 74 Bilateral Throughout] Respiratory 20 18 Rate Respiratory 20 Rate [Bilateral Throughout] Blood Pressure 101/64 O2 Sat by Pulse 99 94 98 Oximetry 09/27/20 09/27/20 09/27/20 07:47 10:04 11:09 Temperature 97.5 F L 98.0 F Pulse Rate 74 90 73 Pulse Rate [ Bilateral Throughout] Respiratory 18 18 Rate Respiratory Rate [Bilateral Throughout] Blood Pressure 105/68 118/83 O2 Sat by Pulse 98 99 Oximetry CBC and BMP: 09/23/20 08:52 09/25/20 05:02 ABG, PT/INR, D-dimer: PT/INR, D-dimer D-Dimer 580.22 ng/mlDDU (0-234) H 09/23/20 03:12 Abnormal lab findings: Abnormal Labs 09/23/20 09/23/20 09/23/20 03:09 03:09 03:12 WBC 4.4 L RBC 2.93 L Hgb 9.6 L Hct 29.8 L MCV 102 H MCH 33 H RDW 16.7 H Plt Count 135 L [place] % (Auto) 10.2 H Lymph # (Auto) 1.1 L D-Dimer 580.22 H Sodium 147 H Potassium Carbon Dioxide BUN 18 H Creatinine 1.3 H Glucose NT-Pro-B Natriuret Pep 7440 H 09/23/20 09/23/20 09/24/20 08:52 08:52 04:49 WBC 4.0 L RBC 2.95 L Hgb 9.6 L Hct 29.9 L MCV 101 H MCH 33 H RDW 17.1 H Plt Count 127 L [place] % (Auto) 9.7 H Lymph # (Auto) 1.1 L D-Dimer Sodium Potassium 3.4 L Carbon Dioxide BUN Creatinine Glucose 166 H NT-Pro-B Natriuret Pep 09/25/20 05:02 WBC RBC Hgb Hct MCV MCH RDW Plt Count [place] % (Auto) Lymph # (Auto) D-Dimer Sodium Potassium Carbon Dioxide 32 H BUN Creatinine Glucose 104 H NT-Pro-B Natriuret Pep
[2020-09-28] MEDS ORDERED: REGADENOSON 0.4 MG/5 ML INJ IV ONE (07:05)
--- NOTE | 2020-09-28 10:28 | Progress Note ---
Assessment and Plan S/p lexiscan MPI stress test today which was negative for ischemia, EF 33%. tele reviewed - in SR HR 70s, 28 beat run NSVT noted overnight, pt asymptomatic. AICD in situ. Currently stable cardiac status. Pt may discharge from cardiology standpoint. Convert IV lasix to PO lasix and initiate aldactone. Cont all other present cardiac management, including Toprol XL and lisinopril. Recommend pt follow up with her primary cardiology team in [place], [place], within 1-2 weeks. The patient has been seen in conjunction with Dr. Coy who agrees with the assessment and plan of care. - Patient Problems (1) Acute HFrEF (heart failure with reduced ejection fraction) Current Visit: Yes Status: Acute (2) Cardiomyopathy Current Visit: Yes Status: Chronic (3) CAD (coronary artery disease) Current Visit: Yes Status: Chronic (4) Stented coronary artery Current Visit: Yes Status: Chronic (5) Automatic implantable cardioverter-defibrillator in situ Current Visit: Yes Status: Chronic (6) Anemia Current Visit: Yes Status: Acute (7) Thrombocytopenia Current Visit: Yes Status: Acute (8) History of CVA (cerebrovascular accident) Current Visit: Yes Status: Chronic (9) COPD (chronic obstructive pulmonary disease) Current Visit: Yes Status: Chronic (10) Chronic respiratory failure Current Visit: Yes Status: Chronic (11) History of gastric bypass Current Visit: Yes Status: Chronic (12) Severe pulmonary hypertension Current Visit: Yes Status: Chronic (13) Chest pain Current Visit: Yes Status: Acute Subjective Date of service: 09/28/20 Principal diagnosis: HF Interval history: pt resting in bed, no current cardiac complaints, for stress test today. tele reviewed - in SR HR 70s, 28 beat run NSVT noted overnight, pt asymptomatic. Objective Last Vital Signs Temp 94.3 F L 09/28/20 04:55 Pulse 69 09/28/20 04:55 Resp 18 09/28/20 04:55 BP 103/65 09/28/20 04:55 Pulse Ox 100 09/28/20 04:55 - Physical Examination General: No Apparent Distress HEENT: Positive: PERRL, Normocephaly, Mucus Membranes Moist Neck: Positive: neck supple, trachea midline Cardiac: Positive: Reg Rate and Rhythm, S1/S2 Lungs: Positive: Decreased Breath Sounds Neuro: Positive: Grossly Intact Abdomen: Positive: Soft, Active Bowel Sounds. Negative: Tender Skin: Negative: Rash Musculoskeletal: No Pain Extremities: Present: edema (trace BLE), warm - Imaging and Cardiology EKG: report reviewed, image reviewed Echo: report reviewed (EF 30-35%, impaired relaxation, LA severely dilated, pacemaker wire in RV, mild AR, mod MR, severe pulm HTN with RVSP 74mmHg. ) Cardiac cath: report reviewed ([facility] on 09/17/2020 which showed severe pulm HTN) - Telemetry EKG Rhythm: Sinus Rhythm - EKG Sinus rhythms and dysrhythmias: sinus rhythm AV and intraventricular conduction: left bundle branch block
--- NOTE | 2020-09-28 10:29 | Treadmill Report ---
NUCLEAR PERFUSION STUDY REASON FOR STUDY: Chest pain with cardiomyopathy. READING PHYSICIAN: Dr. Coy. IMAGING PROTOCOL: Single isotope used to document as single isotope protocol. IMAGING RESULTS: Cavity is dilated on both stress and rest. Distribution radionuclide is normal in the anterior, inferior, septal, and apical regions, mildly diminished in the inferolateral region seen both stress and rest with gated SPECT, EF is 33% with moderate global hypokinesis. The patient's infused Lexiscan with no EKG changes. SUMMARY: 1. Negative Lexiscan EKG. 2. The patient has a small area of mild fixed defect inferolateral region, but normal perfusion in the anterior, inferior, septal, anterolateral region with moderate global hypokinesis, ejection fraction 33%. No significant ischemia noted. JOB# [id number] SANDIE/CHAZ
[2020-09-28] MEDS: METOPROLOL SUCCINATE XL 25 MG TAB PO SCH (11:08)
[2020-09-28] MEDS: LISINOPRIL 5 MG TAB PO SCH (11:08)
[2020-09-28] MEDS: ASPIRIN 81 MG TAB CHEW PO SCH (11:08)
[2020-09-28] MEDS: PANTOPRAZOLE 40 MG TAB PO SCH (11:09)
[2020-09-28] MEDS: ARFORMOTEROL 15 MCG/2 ML NEBU IH SCH (11:12)
[2020-09-28] MEDS: BUDESONIDE 0.5 MG/2 ML NEBU IH SCH (11:12)
--- NOTE | 2020-09-28 12:12 | Discharge Summary ---
Providers - Providers Date of Admission: 09/25/20 11:40 Date of discharge: 09/28/20 Attending physician: KIMBER JAMISON 09/23/20 Consult to Cardiac Rehabilitation [CONS] Routine Reason For Exam: Phase I 09/23/20 04:44 Consult to Cardiology [CONS] Routine Consulting Provider: MIGUEL ALSTON Reason For Exam: CHF exacerbation, Acute chest pain 09/25/20 11:24 Consult to Physician [CONS] Routine Comment: Consulting Provider: SHAWNA PUGH Physician Instructions: Reason For Exam: COPD/home O2 dependent/severe PHT/SOB Primary care physician: MANAGER [employer] Hospitalization Condition: Serious Hospital course: -- Chest pain/atypical chest pain Current Visit: Yes Status: Acute. Plan to address problem: Atypical chest pain, stress test negative for reversible ischemia Noncardiac chest pain probably costochondritis Advised analgesics as needed Patient will follow with her private investigator cash shortage per schedule --Costochondritis; Current Visit: Yes Status: Acute. Plan to address problem: Probably the cause of chest pain Pain medications, supportive care --Insomnia: Current Visit: Yes Status: Acute. Plan to address problem: Ambien 5 mg nightly as needed for insomnia --Acute on chronic hypoxic respiratory failure; Current Visit: Yes Status: Acute. Plan to address problem: Due to COPD, DESHAWN on CPAP and severe PHT patient home oxygen dependent at 3 L Continue oxygen titrate O2 sats to more than 90%. Nebulizers, inhalation steroids Pulmonary evaluation and recommendations noted and appreciated --Chronic lung disease with severe deterioration; Current Visit: Yes Status: Acute. Plan to address problem: not responding with emergency and observational care Patient has severe shortness of breath and wheezing Will continue nebulizers, add IV steroids, inhalation steroids Will consult pulmonary, --Severe pulmonary hypertension/on echo Current Visit: Yes Status: Acute. Plan to address problem: Secondary to severe chronic lung disease Continue oxygen titrate O2 sats to more than 90% IV diuretics, pulmonary consult --Acute on chronic systolic CHF exacerbation Current Visit: Yes Status: Acute Plan to address problem: IV diuretics, beta-blockers, input output monitoring, low-sodium diet. Fluid restriction, HELEN inhibitors, follow echocardiogram Cardiology following -- History of coronary artery disease status post PCI Current Visit: Yes Status: Acute Plan to address problem: Continue current cardiac medications, cardiac diet. Supportive care --Severe ischemic cardiomyopathy: Current Visit: Yes Status: Acute. Plan to address problem: Continue current antifailure medications Check records from March. --AICD in place Current Visit: Yes Status: Acute. Plan to address problem: Interrogation if needed. --history of COPD Current Visit: Yes Status: Acute. Plan to address problem: Well compensated, on 3 L oxygen at home Oxygen titrate O2 sats to more than 90% Pulmonary evaluation if needed --History of obstructive sleep apnea; On CPAP at night, supportive care --History of gastric bypass surgery ; Current Visit: Yes Status: Acute patient has no new complaints -- Anemia; Probably chronic anemia closely monitor H&H and transfuse as needed Follow consultants recommendations Closely monitor patient and adjust management as needed Plan of care reviewed with the patient and her nurse 09/24/2020; patient is evaluated by the cardiology, awaiting records from [facility] 09/25/2020; patient complains of shortness of breath, has history of COPD home oxygen dependent DESHAWN on CPAP and severe pulmonary hypertension, will consult pulmonary. 09/26/2020; cardiology evaluated the patient, recommend stress test on 09/28/2020 Continue current management, pulmonary evaluation and recommendations noted and appreciated Plan of care reviewed with the patient and her nurse 09/27/2020; continue CPAP at night, patient feels slightly better Possible stress test tomorrow per cardiology, advised to ambulate as tolerated Disposition: TO HOME OR SELFCARE Time spent for discharge: 35 min Core Measure Documentation - Palliative Care Palliative Care/ Comfort Measures: Not Applicable - Core Measures Any of the following diagnoses?: heart failure - Heart Failure Discharge Requirements HELEN/ARB for LVSD if EF <40%: Yes Beta fred at discharge: Yes Exam - Constitutional Vitals: Temp Pulse Resp BP Pulse Ox 94.3 F L 80 18 103/65 100 09/28/20 04:55 09/28/20 11:12 09/28/20 11:12 09/28/20 04:55 09/28/20 11:12 General appearance: Present: no acute distress, well-nourished - EENT Eyes: Present: PERRL - Neck Neck: Present: supple, normal ROM - Respiratory Respiratory effort: normal Respiratory: bilateral: diminished, rales, negative: rhonchi, wheezing Plan Activity: advance as tolerated Diet: low salt, other (Cardiac diet) Additional Instructions: Advised to comply with medications, diet, follow-up visits. Advised to follow with your investigator cash shortage from [place]. Advised to see private creative guru in [place] in 1 to 2 weeks or as needed. If you have worsening symptoms contact MD or go to the nearest emergency room Follow up with: PRIMARY CARE, [Primary Care Provider] - 7 Days Prescriptions: Spironolactone [Aldactone] 25 mg PO QDAY #30 tablet Aspirin [Aspirin BABY CHEW TAB] 81 mg PO QDAY #30 tab.chew Prednisone [predniSONE 10 mg (6-Day Pack, 21 Tabs)] 10 mg PO .TAPER #1 tab.ds.pk
[2020-09-28 16:25] VITALS: BP 146/90
[2020-09-28] MEDS ORDERED: FUROSEMIDE 40 MG TAB PO SCH (18:00)
[2020-09-29] MEDS ORDERED: SPIRONOLACTONE 25 MG TAB PO SCH (10:00)
== END 2020-09-28 15:49 | disposition home or self-care (01) | DRG 205 ==
LOC: ED 01:40 → 4A 04:46 → OBSVTOIN 09-25 11:40
PROVIDERS: ADMIT Hospitalist; ATTEND Internal Medicine
PROC: 5A09457 Assistance with Respiratory Ventilation, 24-96 Consecutive Hours, Continuous Positive Airway Pressure (ICD-10-PCS; principal; 2020-09-26)
DX: M94.0 Chondrocostal junction syndrome [Tietze] (principal); J96.21 Acute and chronic respiratory failure with hypoxia; I50.23 Acute on chronic systolic (congestive) heart failure; I69.351 Hemiplegia and hemiparesis following cerebral infarction affecting right dominant side; E87.6 Hypokalemia; G47.00 Insomnia, unspecified; J44.9 Chronic obstructive pulmonary disease, unspecified; G47.33 Obstructive sleep apnea (adult) (pediatric); J98.4 Other disorders of lung; I27.20 Pulmonary hypertension, unspecified; I25.5 Ischemic cardiomyopathy; D63.8 Anemia in other chronic diseases classified elsewhere; I25.119 Atherosclerotic heart disease of native coronary artery with unspecified angina pectoris; D69.6 Thrombocytopenia, unspecified; Z98.84 Bariatric surgery status; Z88.0 Allergy status to penicillin; Z91.040 Latex allergy status; Z79.899 Other long term (current) drug therapy; Z95.810 Presence of automatic (implantable) cardiac defibrillator; Z95.5 Presence of coronary angioplasty implant and graft; I25.2 Old myocardial infarction; Z86.79 Personal history of other diseases of the circulatory system
CPT/HCPCS: 36415; 71045; 78452; 80048; 80061; 83880; 84484; 85025; 85379; 87641; 93005; 93017; 93306; 94640; 94660; 94760; G0378; A9270-GY; A9502; J1940; J2270; J2785; J2920